=== PATIENT | male | born 1965 | race African-American/Black ===

== ENCOUNTER 2016-06-08 13:10 | Inpatient (IN) | payer OTHER ==
[2016-06-08 13:21] VITALS: BMI 23.2
--- NOTE | 2016-06-08 16:28 | HP ---
CIWA Score - CIWA Score Nausea/Vomitin Muscle Tremors: 3 Anxiety: 3 Agitation: 3 Paroxysmal Sweats: 2 Orientation: 0-Oriented Tacttile Disturbances: 2-Mild Itch/Numbness/Burn Auditory Disturbances: 2-Mild Harshness/Frighten Visual Disturbances: 2-Mild Sensitivity Headache: 2-Mild CIWA-Ar Total Score: 22 Admission ROS BHS - HPI Chief Complaint: i need help to stop drinking alcohol and cocaine Allergies/Adverse Reactions: Allergies Allergy/AdvReac Type Severity Reaction Status Date / Time No Known Allergies Allergy Verified 06/08/16 15:57 History of Present Illness: this 50 years old male with alcohol and cocaine dependence,withdrawal symptom, last detox 2013 [facility] syncope alcohol bipolar disorder ptsd longest period of sobriety 6 years Exam Limitations: No Limitations - Ebola screening Have you traveled outside of the country in the last 21 days: No Have you had contact with anyone from an Ebola affected area: No Have you been sick,other than usual withdrawal symptoms: No Do you have a fever: No - Review of Systems Constitutional: Diaphoresis, Loss of Appetite, Malaise, Night Sweats, Changes in sleep EENT: reports: Nose Congestion Respiratory: reports: No Symptoms reported Cardiac: reports: Palpitations GI: reports: Diarrhea, Nausea, Vomiting, Abdominal cramping : reports: No Symptoms Reported Musculoskeletal: reports: Back Pain, Muscle Pain Integumentary: reports: Dryness Neuro: reports: Headache, Tremors Endocrine: reports: No Symptoms Reported Hematology: reports: No Symptoms Reported Psychiatric: reports: other (bipolar disorder,ptsd) Patient History - Patient Medical History Hx Anemia: No Hx Asthma: No Hx Chronic Obstructive Pulmonary Disease (COPD): No Hx Cancer: No Hx Cardiac Disorders: No Hx Congestive Heart Failure: No Hx Hypertension: No Hx Hypercholesterolemia: No Hx Pacemaker: No HX Cerebrovascular Accident: No Hx Seizures: No Hx Dementia: No Hx Diabetes: No Hx Gastrointestinal Disorders: No Hx Liver Disease: Yes (unknown to pt, pos. for hep B antibodies) Hx Genitourinary Disorders: No Hx Sexually Transmitted Disorders: No Hx Renal Disease (ESRD): No Hx Thyroid Disease: No Hx Human Immunodeficiency Virus (HIV): No (tested last month . [facility]) Hx Hepatitis C: No Hx Depression: Yes Hx Suicide Attempt: No Hx Bipolar Disorder: Yes (rispedal ) Hx Schizophrenia: No Other Medical History: no suicidal,no homicidal - Patient Surgical History Past Surgical History: Yes Hx Neurologic Surgery: No Hx Cataract Extraction: No Hx Cardiac Surgery: No Hx Lung Surgery: No Hx Breast Surgery: No Hx Breast Biopsy: No Hx Abdominal Surgery: No Hx Appendectomy: No Hx Cholecystectomy: No Hx Genitourinary Surgery: No Hx Section: No Hx Orthopedic Surgery: Yes (L KNEE SX IN 2002) Anesthesia Reaction: No - PPD History Previous Implant?: Yes Documented Results: Negative w/o proof PPD to be Administered?: Yes - Smoking Cessation Smoking history: Current every day smoker Have you smoked in the past 12 months: Yes Aproximately how many cigarettes per day: 10 Hx Chewing Tobacco Use: No Initiated information on smoking cessation: Yes 'Breaking Loose' booklet given: 06/08/16 - Substance & Tx. History Hx Alcohol Use: Yes Hx Substance Use: Yes Substance Use Type: Alcohol, Cocaine Hx Substance Use Treatment: Yes (2013 [facility]) - Substances Abused Alcohol Route: Oral Frequency: Daily Amount used: 1 pint vodka 3 beers Age of first use: 20 Date of Last Use: 06/08/16 Cocaine Route: Inhalation Frequency: 3-6 times per week Amount used: 3gm Age of first use: 20 Date of Last Use: 06/06/16 Family Disease History - Family Disease History Family History: Denies Family Disease History: Diabetes: Mother Admission Physical Exam BHS - Vital Signs Vital Signs: Vital Signs - 24 hr 06/08/16 13:14 Temperature 96.6 F L Pulse Rate 81 Respiratory 16 Rate Blood Pressure 123/75 - Physical General Appearance: Yes: Moderate Distress, Tremorous, Irritable, Sweating, Anxious HEENTM: Yes: Normal ENT Inspection, Normocephalic, Pharynx Normal, Nasal Congestion Respiratory: Yes: Lungs Clear, Normal Breath Sounds, No Respiratory Distress Neck: Yes: Within Normal Limits, Supple Breast: Yes: Within Normal Limits Cardiology: Yes: Within Normal Limits, Regular Rhythm, Regular Rate, S1, S2 Abdominal: Yes: Within Normal Limits, Normal Bowel Sounds, Non Tender, Flat, Soft Genitourinary: Yes: Within Normal Limits Back: Yes: Muscle Spasm Extremities: Yes: Tremors 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 (5) PTSD (post-traumatic stress disorder) Status: Chronic Comment: As per self-report. (6) Nicotine dependence Status: Acute Cleared for Admission [facility] - Detox or Rehab [facility] Level of Care: Medically Managed Detox Regimen/Protocol: Librium [facility] Breath Alcohol Content Breath Alcohol Content: 0.040 Urine Drug Screen - Results Drug Screen Negative: No Urine Drug Screen Results: NATO-Cocaine
[2016-06-08] MEDS ORDERED: MAGNESIUM CITRATE 300 ML BOTTLE PO PRN (16:39)
[2016-06-08] MEDS ORDERED: NICOTINE POLACRILEX 2 MG GUM BC PRN (16:39)
[2016-06-08] MEDS ORDERED: chlordiazePOXIDE HCL 25 MG CAPSULE PO ONE (16:39)
[2016-06-08] MEDS ORDERED: guaiFENesin/D-METHORPHAN HB 10 ML UNIT-DOSE CUPS PO PRN (16:39)
[2016-06-08] MEDS ORDERED: chlordiazePOXIDE HCL 25 MG CAPSULE PO PRN (16:39)
[2016-06-08] MEDS ORDERED: ACETAMINOPHEN 325 MG TABLET (FP) PO PRN (16:39)
[2016-06-08] MEDS ORDERED: MENTHOL/PHENOL 1 EACH UD MM PRN (16:39)
[2016-06-08] MEDS ORDERED: diphenhydrAMINE HCL 50 MG CAPSULE PO PRN (16:39)
[2016-06-08] MEDS ORDERED: MAGNESIUM HYDROX 2400MG/30ML ORAL SUSPENSION 30 ML CUP PO PRN (16:39)
[2016-06-08] MEDS ORDERED: hydrOXYzine PAMOATE 50 MG CAPSULE (FP) PO PRN (16:39)
[2016-06-08] MEDS ORDERED: IBUPROFEN 400 MG TABLET (FP) PO PRN (16:39)
[2016-06-08] MEDS ORDERED: MAG HYDROX/AL HYDROX/SIMETH 30 ML UNIT-DOSE CUP PO PRN (16:39)
[2016-06-08] MEDS ORDERED: LOPERAMIDE HCL 2 MG CAPSULE PO PRN (16:39)
[2016-06-08] MEDS ORDERED: P-EPHED 60MG/TRIPROLIDI 2.5MG TABLET PO PRN (16:39)
[2016-06-08] MEDS: chlordiazePOXIDE HCL 25 MG CAPSULE PO SCH ×2 (18:04→22:46)
[2016-06-08] MEDS: NICOTINE 21 MG/24 HOURS TOPICAL PATCH TD SCH (18:09)
[2016-06-08] MEDS: THIAMINE HCL 100 MG TABLET (FP) PO SCH (22:47)
[2016-06-09] MEDS: chlordiazePOXIDE HCL 25 MG CAPSULE PO SCH ×5 (05:49→22:16)
[2016-06-09] MEDS: NICOTINE 21 MG/24 HOURS TOPICAL PATCH TD SCH (10:24)
[2016-06-09] MEDS: PRENATAL VITAMINS W/ FOLIC ACID TABLET (FP) PO SCH (10:24)
[2016-06-09 10:42] LABS: MCH 31.5 pg (25.7-33.7); MCHC 33.7 g/dl (32.0-35.9); MEAN CELL VOLUME 93.6 fl (80-96); MEAN PLT VOLUME 8.1 fl (7.5-11.1); PLATELET COUNT 236 K/MM3 (134-434); RDW 13.2 % (11.9-15.9); WHITE BLOOD COUNT 3.9 K/mm3 (4.0-10.0)
[2016-06-09 10:54] LABS: ALBUMIN 3.4 g/dl (3.4-5.0); ANION GAP 6 (8-16); CALCIUM 8.5 mg/dL (8.5-10.1); CO2 30 mmol/L (21-32); GLUCOSE,RANDOM 85 mg/dL (74-106); SGOT/AST 22 U/L (15-37); SGPT/ALT 26 U/L (12-78)
[2016-06-09 10:56] LABS: ALK PHOS 58 U/L (45-117); BILIRUBIN,TOTAL 0.4 mg/dL (0.2-1.0); CREATININE 0.9 mg/dL (0.7-1.3); TOT PROT 6.7 g/dl (6.4-8.2)
--- NOTE | 2016-06-09 11:26 | EKG ---
Test Reason : Blood Pressure : / mmHG Vent. Rate : 070 BPM Atrial Rate : 076 BPM P-R Int : 136 ms QRS Dur : 078 ms QT Int : 346 ms P-R-T Axes : 075 061 030 degrees QTc Int : 373 ms NORMAL SINUS RHYTHM NORMAL ECG NO PREVIOUS ECGS AVAILABLE Confirmed by RAINA VIVAR MD ([id number]) on 06/09/2016 11:26:49 AM Referred By: Confirmed By:RAINA VIVAR MD
--- NOTE | 2016-06-09 12:55 | CONSULT ---
[facility] Psychiatric Consult - Data Date of interview: 06/09/16 Admission source: [facility] Identifying data: First admission to [facility] for this 50 y/o AA male seeking detox treatment on for alcohol and cocaine dependence.Patient is single, a father of one,homeless,unemployed and supported on welfare. Substance Abuse History: - Smoking Cessation. Smoking history: Current every day smoker. Have you smoked in the past 12 months: Yes. Aproximately how many cigarettes per day: 10. Hx Chewing Tobacco Use: No. Initiated information on smoking cessation: Yes. 'Breaking Loose' booklet given: 06/08/16. - Substance & Tx. History. Hx Alcohol Use: Yes. Hx Substance Use: Yes. Substance Use Type : Alcohol, Cocaine. Hx Substance Use Treatment: Yes (2013 [facility]). - Substances Abused. Alcohol. Route: Oral. Frequency: Daily. Amount used: 1 pint vodka 3 beers. Age of first use: 20. Date of Last Use: 06/08/16. Cocaine. Route: Inhalation. Frequency: 3-6 times per week. Amount used: 3gm. Age of first use: 20. Date of Last Use: 06/06/16. Confirmed by patient in this interview. Medical History: Suspicion of liver disease and a history of orthosurgery (left knee) in 2002. Psychiatric History: Patient admits to a history of five psychiatric hospitalizations.He is known to [facility] and [facility].Diagnosed with MDD.Mr Conley reports that he used to be on seroquel and celexa.Lost to follow up for months.Patient got just released from long term (served three years) on 05/12/16.No history of suicide attempts. Physical/Sexual Abuse/Trauma History: Patient denies history of sexual abuse.He is currently on parole until 2019. Additional Comment: Urine Drug Screen Results: NATO-Cocaine.Noted. Mental Status Exam - Mental Status Exam Alert and Oriented to: Time, Place, Person Cognitive Function: Good Patient Appearance: Well Groomed Mood: Anxious, Apprehensive Affect: Mood Congruent Patient Behavior: Appropriate, Cooperative Speech Pattern: Clear, Appropriate Voice Loudness: Normal Thought Process: Goal Oriented Thought Disorder: Not Present Hallucinations: Denies Suicidal Ideation: Denies Homicidal Ideation: Denies Insight/Judgement: Fair Sleep: Fair Appetite: Good Muscle strength/Tone: Normal Gait/Station: Normal Psychiatric Findings - Problem List ([place] 1, 2,3) (1) Alcohol dependence with uncomplicated withdrawal Current Visit: Yes Status: Acute (2) Nicotine dependence Current Visit: Yes Status: Acute (3) Cocaine dependence Current Visit: Yes Status: Active (4) Bipolar disorder Current Visit: Yes Status: Chronic Comment: As per self-report. (5) PTSD (post-traumatic stress disorder) Current Visit: Yes Status: Chronic Comment: As per self-report. - Initial Treatment Plan Initial Treatment Plan: Psychoeducation.Detoxification.Medications : celexa 10 mg po daily + seroquel 100 mg po hs.Side effects/benefits discussed with the patient.He agrees with this plan.Observation.
--- NOTE | 2016-06-09 13:08 | PN ---
[facility] CIWA - CIWA Score Nausea/Vomitin-No Nausea/No Vomiting Muscle Tremors: 3 Anxiety: 4-Mod. Anxious/Guarded Agitation: 4-Moderately Restless Paroxysmal Sweats: 3 Orientation: 0-Oriented Tacttile Disturbances: 0-None Auditory Disturbances: 0-None Visual Disturbances: 0-None Headache: 0-None Present CIWA-Ar Total Score: 14 BHS Progress Note (SOAP) Subjective: Anxiety,tremors,sweating,interrupted sleep,restless Objective: 06/09/16 13:08 Vital Signs - 8 hr 06/09/16 06/09/16 06:44 09:28 Temperature 98.0 F 96.9 F L Pulse Rate 58 L 63 Respiratory 18 18 Rate Blood Pressure 128/75 113/68 Laboratory Last Values WBC 3.9 K/mm3 (4.0-10.0) L 06/09/16 07:00 RBC 4.08 M/mm3 (4.00-5.60) 06/09/16 07:00 Hgb 12.8 GM/dL (11.7-16.9) D 06/09/16 07:00 Hct 38.2 % (35.4-49) D 06/09/16 07:00 MCV 93.6 fl (80-96) 06/09/16 07:00 MCHC 33.7 g/dl (32.0-35.9) 06/09/16 07:00 RDW 13.2 % (11.9-15.9) 06/09/16 07:00 Plt Count 236 K/MM3 (134-434) 06/09/16 07:00 MPV 8.1 fl (7.5-11.1) 06/09/16 07:00 Sodium 141 mmol/L (136-145) 06/09/16 07:00 Potassium 4.2 mmol/L (3.5-5.1) 06/09/16 07:00 Chloride 105 mmol/L (98-107) 06/09/16 07:00 Carbon Dioxide 30 mmol/L (21-32) 06/09/16 07:00 Anion Gap 6 (8-16) L 06/09/16 07:00 BUN 12 mg/dL (7-18) 06/09/16 07:00 Creatinine 0.9 mg/dL (0.7-1.3) 06/09/16 07:00 Creat Clearance w eGFR > 60 (>60) 06/09/16 07:00 Random Glucose 85 mg/dL (74-106) 06/09/16 07:00 Calcium 8.5 mg/dL (8.5-10.1) 06/09/16 07:00 Total Bilirubin 0.4 mg/dL (0.2-1.0) D 06/09/16 07:00 AST 22 U/L (15-37) 06/09/16 07:00 ALT 26 U/L (12-78) D 06/09/16 07:00 Alkaline Phosphatase 58 U/L (45-117) D 06/09/16 07:00 Total Protein 6.7 g/dl (6.4-8.2) 06/09/16 07:00 Albumin 3.4 g/dl (3.4-5.0) 06/09/16 07:00 RPR Titer Nonreactive (NONREACTIVE) 06/09/16 07:00 Labs noted Assessment: 06/09/16 13:10 Withdrawal Sx. Plan: Continue detox
[2016-06-09] MEDS ORDERED: QUEtiapine FUMARATE 100 MG TABLET (FP) PO SCH (22:00)
[2016-06-09] MEDS: THIAMINE HCL 100 MG TABLET (FP) PO SCH (22:15)
[2016-06-10] MEDS: chlordiazePOXIDE HCL 25 MG CAPSULE PO SCH ×2 (05:43→11:17)
[2016-06-10 09:50] VITALS: BP 131/78; PULSE 66; TEMP 98.5
[2016-06-10] MEDS ORDERED: CITALOPRAM HYDROBROMIDE 10 MG TABLET (FP) PO SCH (10:00)
[2016-06-10] MEDS: NICOTINE 21 MG/24 HOURS TOPICAL PATCH TD SCH (10:59)
[2016-06-10] MEDS: PRENATAL VITAMINS W/ FOLIC ACID TABLET (FP) PO SCH (10:59)
--- NOTE | 2016-06-10 11:01 | PN ---
S CIWA - CIWA Score Nausea/Vomitin-No Nausea/No Vomiting Muscle Tremors: 4-Moderate,w/Arms Extend Anxiety: 3 Agitation: 3 Paroxysmal Sweats: 3 Orientation: 0-Oriented Tacttile Disturbances: 0-None Auditory Disturbances: 0-None Visual Disturbances: 0-None Headache: 0-None Present CIWA-Ar Total Score: 13 BHS Progress Note (SOAP) Subjective: Sweating,anxiety,tremors,interrupted sleep,restless Objective: 06/10/16 11:00 Vital Signs - 8 hr 06/10/16 06/10/16 06/10/16 03:28 05:56 09:49 Temperature 96.1 F L 98.5 F Pulse Rate 65 66 Respiratory 18 16 18 Rate Blood Pressure 112/60 131/78 Laboratory Tests 06/08/16 06/09/16 06/09/16 07:00 07:00 07:00 WBC 3.9 L RBC 4.08 Hgb 12.8 D Hct 38.2 D MCV 93.6 MCHC 33.7 RDW 13.2 Plt Count 236 MPV 8.1 Sodium 141 Potassium 4.2 Chloride 105 Carbon Dioxide 30 Anion Gap 6 L BUN 12 Creatinine 0.9 Creat Clearance w eGFR > 60 Random Glucose 85 Calcium 8.5 Total Bilirubin 0.4 D AST 22 ALT 26 D Alkaline Phosphatase 58 D Total Protein 6.7 Albumin 3.4 RPR Titer Hepatitis C Antibody 0.1 06/09/16 07:00 WBC RBC Hgb Hct MCV MCHC RDW Plt Count MPV Sodium Potassium Chloride Carbon Dioxide Anion Gap BUN Creatinine Creat Clearance w eGFR Random Glucose Calcium Total Bilirubin AST ALT Alkaline Phosphatase Total Protein Albumin RPR Titer Nonreactive Hepatitis C Antibody labs noted Assessment: 06/10/16 11:00 withdrawal sx. Plan: continue detox
--- NOTE | 2016-06-10 12:57 | DS ---
[facility] Detox Discharge Summary Admission Date: 06/08/16 Discharge Date: 06/10/16 - History Present History: Alcohol Dependence Additional Comments: PT DECLINEDE TO CONTINUE WITH DETOX STATING PERSONAL REASONS. Pertinent Past History: PTSD/BIPOLAR DISORDER HX S/P LEFT KNEE SX - Physical Exam Results Vital Signs: Vital Signs Temperature 98.5 F 06/10/16 09:49 Pulse Rate 66 06/10/16 09:49 Respiratory Rate 18 06/10/16 09:49 Blood Pressure 131/78 06/10/16 09:49 O2 Sat by Pulse Oximetry (%) Pertinent Admission Physical Exam Findings: WITHDRAWAL SX - Treatment Hospital Course: Discharged Condition Good - Medication Discharge Medications: Ambulatory Orders Citalopram Hydrobromide [Celexa -] 10 mg PO DAILY 06/08/16 Quetiapine Fumarate [Seroquel -] 25 mg PO HS 06/08/16 Citalopram Hydrobromide [Celexa -] 10 mg PO DAILY #30 tablet 06/09/16 Quetiapine Fumarate [Seroquel] 100 mg PO HS #30 tablet 06/09/16 - Diagnosis (1) Alcohol dependence with uncomplicated withdrawal Status: Acute (2) Nicotine dependence Status: Acute Qualifiers: Nicotine product type: cigarettes Substance use status: in withdrawal Qualified Code(s): F17.213 - Nicotine dependence, cigarettes, with withdrawal (3) Bipolar disorder Status: Chronic (4) PTSD (post-traumatic stress disorder) Status: Chronic (5) Cocaine dependence, uncomplicated Status: Acute - AMA Did Patient Leave Against Medical Advice: Yes
[2016-06-10] MEDS ORDERED: chlordiazePOXIDE 5 MG CAPSULE PO SCH (17:00)
[2016-06-11] MEDS ORDERED: chlordiazePOXIDE HCL 10 MG CAPSULE PO SCH (17:00)
== END 2016-06-10 13:30 | disposition left against medical advice (07) | DRG 770 ==
LOC: YASAS 13:10 → Y3N 15:59
PROVIDERS: ADMIT Internal Medicine; ATTEND Internal Medicine
PROC: HZ2ZZZZ Detoxification Services for Substance Abuse Treatment (ICD-10-PCS; principal; 2016-06-10)
DX: F10.230 Alcohol dependence with withdrawal, uncomplicated (principal); F14.20 Cocaine dependence, uncomplicated; F17.210 Nicotine dependence, cigarettes, uncomplicated; F31.9 Bipolar disorder, unspecified; F43.10 Post-traumatic stress disorder, unspecified; R55 Syncope and collapse
CPT/HCPCS: 36415; 80053; 85027; 86593; 93005; 93010

== ENCOUNTER 2017-01-06 10:49 | Inpatient (IN) | payer OTHER ==
[2017-01-06 11:12] VITALS: BMI 22.1
--- NOTE | 2017-01-06 13:17 | HP ---
Admission ROS [facility] Chief Complaint: PATIENT STATES " I AM HERE FOR REHAB." Allergies/Adverse Reactions: Allergies Allergy/AdvReac Type Severity Reaction Status Date / Time No Known Allergies Allergy Verified 01/06/17 11:39 History of Present Illness: PATIENT IS A 51 YEARS OLD MALE WITH ALCOHOL DEPENDENCY AND COCAINE DEPENDENCY. COMPLETED DETOX AT [facility] ON 01/04/20. Exam Limitations: No Limitations - Ebola screening Have you traveled outside of the country in the last 21 days: No Have you had contact with anyone from an Ebola affected area: No Have you been sick,other than usual withdrawal symptoms: No Do you have a fever: No - Review of Systems Constitutional: No Symptoms Reported EENT: reports: Dental Problems (UPPER DENTURES) Respiratory: reports: No Symptoms reported GI: reports: No Symptoms Reported : reports: No Symptoms Reported Musculoskeletal: reports: Back Pain (LOWER BACK PAIN), Joint Stiffness Integumentary: reports: No Symptoms Reported Neuro: reports: Paresthesia, Tingling (HX OF NECK INJURY;LEFT HAND) Endocrine: reports: No Symptoms Reported Hematology: reports: No Symptoms Reported Psychiatric: reports: Mood/Affect Appropiate (ON ZYPREXA MED.), Orientated x3, Anxious, Depressed Other Systems: Reviewed and Negative Patient History - Patient Medical History Hx Anemia: No Hx Asthma: No Hx Chronic Obstructive Pulmonary Disease (COPD): No Hx Cancer: No Hx Cardiac Disorders: No Hx Congestive Heart Failure: No Hx Hypertension: No Hx Hypercholesterolemia: No Hx Pacemaker: No HX Cerebrovascular Accident: No Hx Seizures: No Hx Dementia: No Hx Diabetes: No Hx Gastrointestinal Disorders: No Hx Liver Disease: No (PT DENIES) Hx Genitourinary Disorders: No Hx Sexually Transmitted Disorders: No Hx Renal Disease (ESRD): No Hx Thyroid Disease: No Hx Human Immunodeficiency Virus (HIV): No (LAST TESTED 02/2016) Hx Hepatitis C: No (LAST TESTED 02/2016) Hx Depression: Yes (ON MEDS) Hx Suicide Attempt: No (PATIENT DENIES CURRENT SUICIDAL AND HOMICIDAL IDEATION) Hx Bipolar Disorder: Yes (ON MEDS) Hx Schizophrenia: No Other Medical History: PTSD, MOOD DISORDER - Patient Surgical History Past Surgical History: Yes Hx Neurologic Surgery: No Hx Cataract Extraction: No Hx Cardiac Surgery: No Hx Lung Surgery: No Hx Breast Surgery: No Hx Breast Biopsy: No Hx Abdominal Surgery: No Hx Appendectomy: No Hx Cholecystectomy: No Hx Genitourinary Surgery: No Hx Section: No Hx Orthopedic Surgery: Yes (L KNEE SX IN 2002) Anesthesia Reaction: No - PPD History Previous Implant?: Yes Documented Results: Negative w/proof Implanted On Prior [facility] Admission?: Yes Date: 06/10/16 Results: 0mm PPD to be Administered?: No - Reproductive History Patient is a Female of Child Bearing Age (11 -55 yrs old): No (MALE) - Smoking Cessation Smoking history: Current every day smoker Have you smoked in the past 12 months: Yes Aproximately how many cigarettes per day: 12 Cigars Per Day: 0 Hx Chewing Tobacco Use: No Initiated information on smoking cessation: Yes 'Breaking Loose' booklet given: 01/06/17 (GIVEN AT ADMISSION) - Substance & Tx. History Hx Alcohol Use: Yes Hx Substance Use: Yes Substance Use Type: Alcohol, Cocaine Hx Substance Use Treatment: Yes (COMPLETED DETOX AT [facility] ON 01/03/2017) - Substances Abused Alcohol Route: Oral Frequency: Daily Amount used: 3 qts of beer Age of first use: 20 Date of Last Use: 12/30/16 Cocaine Route: Inhalation Frequency: Daily Amount used: 1-2 grams Age of first use: 20 Date of Last Use: 12/30/16 Family Disease History - Family Disease History Family Disease History: Diabetes: Mother (ASTHMA), Respiratory: Mother, Other: Father () Admission Physical Exam BHS - Vital Signs Vital Signs: Vital Signs - 24 hr 01/06/17 11:07 Temperature 96.9 F L Pulse Rate 76 Respiratory 20 Rate Blood Pressure 133/77 BHS Breath Alcohol Content Breath Alcohol Content: 0 Urine Drug Screen - Results Drug Screen Negative: No Urine Drug Screen Results: NATO-Cocaine, BZO-Benzodiazepines
--- NOTE | 2017-01-06 14:41 | HP ---
[facility] Re[facility] Assess/Revision - Admission History [facility] Date of Admission to Rehab: 01/06/2017 - Vital signs Vital Signs: Vital Signs Period Temp Pulse Resp BP Sys/Donis Pulse Ox Last 24 Hr 96.9 F 76 20 133/77 - Findings Detox History & Physical reviewed: Yes Concur with findings: Yes Comments/Additional Findings: patient had microscopic hematuria last visit will repeat u/a Inpatient Rehab Admission - Initial Determination Are CD services needed?: Yes Free of communicable disease: Yes Not in need of hospitalization: Yes - Rehab Admission Criteria Comorbidities: Yes Patient is meeting Inpatient Rehab admission criteria:: Yes
[2017-01-06] MEDS ORDERED: MAGNESIUM CITRATE 300 ML BOTTLE PO PRN (14:47)
[2017-01-06] MEDS ORDERED: P-EPHED 60MG/TRIPROLIDI 2.5MG TABLET PO PRN (14:47)
[2017-01-06] MEDS ORDERED: guaiFENesin/D-METHORPHAN HB 10 ML UNIT-DOSE CUPS PO PRN (14:47)
[2017-01-06] MEDS ORDERED: ACETAMINOPHEN 325 MG TABLET (FP) PO PRN (14:47)
[2017-01-06] MEDS ORDERED: LOPERAMIDE HCL 2 MG CAPSULE PO PRN (14:47)
[2017-01-06] MEDS ORDERED: MENTHOL/PHENOL 1 EACH UD MM PRN (14:47)
[2017-01-06] MEDS ORDERED: MAGNESIUM HYDROX 2400MG/30ML ORAL SUSPENSION 30 ML CUP PO PRN (14:47)
[2017-01-06] MEDS ORDERED: MAG HYDROX/AL HYDROX/SIMETH 30 ML UNIT-DOSE CUP PO PRN (14:47)
[2017-01-06] MEDS ORDERED: IBUPROFEN 400 MG TABLET (FP) PO PRN (14:47)
[2017-01-06] MEDS: THIAMINE HCL 100 MG TABLET (FP) PO SCH (21:52)
[2017-01-06 23:13] LABS: URINE APPEARANCE CLEAR; URINE BILIRUBIN NEGATIVE (NEGATIVE); URINE BLOOD 1+ (NEGATIVE); URINE COLOR LTYELLOW; URINE GLUCOSE (UA) NEGATIVE (NEGATIVE); URINE KETONE NEGATIVE (NEGATIVE); URINE LEUK ESTERASE NEGATIVE (NEGATIVE); URINE NITRITE NEGATIVE (NEGATIVE); URINE PROTEIN NEGATIVE (NEGATIVE); URINE UROBILINOGEN NEGATIVE mg/dL (0.2-1.0)
[2017-01-06 23:35] LABS: URINE RBC 1 /hpf (0-3); URINE WBC 1 /hpf (3-5)
--- NOTE | 2017-01-07 06:30 | HP ---
Psychiatrist Admission - Data Date of interview: 01/07/17 Admission source: [facility] Identifying data: This is the first [facility] admission for this 51 years old single Black male, father of 15 years old daughter, unemployed on public assistance, homeless Medical History: Significant for history of orthosurgery on left knee in 2002. Smokes 12 cigarettes daily Psychiatric History: Patient reports that he has been seeing psychiatrist since the age of 9. Reports history Bipolar depression with multiple psychiatric admissions including to [facility]. Most recent one was in 2015 to [facility] for depression. Reports non-compliance with OPD care. He was in intermediate for 3 years and released on 05/12/16 and was again incarcerated from August 2016 to Dec 11, 2016. He received psychiatric reatment while there and he was released on Zyprexa 5 mg po daily and Benadryl 50 mg po HS. He saw Dr Mcfadden on 01/01/17 while in detox and was prescribed Zyprexa 5 mg/day. At present reports feeling depressed and sleeping poorly Physical/Sexual Abuse/Trauma History: Patient denies history of sexual abuse. He is currently on parole until 2019. Additional Comment: Reports history of multiple arrests including 7 felony convictions. Reports being on parole till May 2019 Vital Signs: Vital Signs - 24 hr 01/06/17 01/07/17 01/07/17 11:07 00:32 04:27 Temperature 96.9 F L Pulse Rate 76 Respiratory 20 18 18 Rate Blood Pressure 133/77 Allergies/Adverse Reactions: Allergies Allergy/AdvReac Type Severity Reaction Status Date / Time No Known Allergies Allergy Verified 01/06/17 11:39 Date of last physical exam: 12/31/16 Concur with the findings of this exam: Yes - Substance Abuse/Tx History Hx Alcohol Use: Yes Hx Substance Use: Yes Substance Use Type: Alcohol (Started drinking alcohol at age 20, consumes 2 pints of liquor and a 6pk of beer 3-6 times weekly. Last drank on 12/31/16), Cocaine (Started using cocaine at age 20, consumes $50 worth daily. Last used on 12/29/16) Hx Substance Use Treatment: Yes (3 previous inpt detox @ [facility]) Mental Status Exam - Mental Status Exam Alert and Oriented to: Time, Place, Person Cognitive Function: Fair Patient Appearance: Well Groomed Mood: Depressed, Irritable Affect: Appropriate Patient Behavior: Cooperative Speech Pattern: Clear Voice Loudness: Normal Thought Process: Intact, Goal Oriented Thought Disorder: Not Present Hallucinations: Denies Suicidal Ideation: Denies Homicidal Ideation: Denies Insight/Judgement: Fair Sleep: Poorly Muscle strength/Tone: Normal Gait/Station: Normal Psychiatric Findings - Problem List ([place] 1, 2,3) (1) Alcohol dependence Current Visit: Yes Status: Acute (2) Cocaine dependence Current Visit: Yes Status: Acute (3) Nicotine dependence Current Visit: No Status: Chronic Qualifiers: Nicotine product type: cigarettes Substance use status: in withdrawal Qualified Code(s): F17.213 - Nicotine dependence, cigarettes, with withdrawal; F17.213 - Nicotine dependence, cigarettes, with withdrawal (4) Bipolar disorder Current Visit: No Status: Chronic Comment: As per self-report. - Initial Treatment Plan Initial Treatment Plan: 1) Continue Zyprexa 5 mg po HS. 2) Monitor progress
[2017-01-07] MEDS: PRENATAL VITAMINS W/ FOLIC ACID TABLET (FP) PO SCH (10:58)
--- NOTE | 2017-01-07 11:51 | EKG ---
Test Reason : Blood Pressure : / mmHG Vent. Rate : 084 BPM Atrial Rate : 084 BPM P-R Int : 136 ms QRS Dur : 092 ms QT Int : 350 ms P-R-T Axes : 065 048 027 degrees QTc Int : 413 ms NORMAL SINUS RHYTHM NORMAL ECG WHEN COMPARED WITH ECG OF 31-DEC-2016 22:26, NO SIGNIFICANT CHANGE WAS FOUND Confirmed by FORTUNATO FLORES MD ([id number]) on 01/07/2017 11:51:25 AM Referred By: Trixie Hinton Confirmed By:FORTUNATO FLORES MD
[2017-01-07] MEDS: THIAMINE HCL 100 MG TABLET (FP) PO SCH (21:16)
[2017-01-07] MEDS: OLANZapine 5 MG TABLET PO SCH (21:16)
[2017-01-08] MEDS: PRENATAL VITAMINS W/ FOLIC ACID TABLET (FP) PO SCH (09:33)
[2017-01-08] MEDS: OLANZapine 5 MG TABLET PO SCH (21:52)
[2017-01-08] MEDS: THIAMINE HCL 100 MG TABLET (FP) PO SCH (21:52)
[2017-01-08] MEDS: diphenhydrAMINE HCL 50 MG CAPSULE PO PRN (21:53)
[2017-01-09] MEDS: PRENATAL VITAMINS W/ FOLIC ACID TABLET (FP) PO SCH (10:16)
[2017-01-09] MEDS: OLANZapine 5 MG TABLET PO SCH (22:33)
[2017-01-09] MEDS: THIAMINE HCL 100 MG TABLET (FP) PO SCH (22:33)
[2017-01-09] MEDS: diphenhydrAMINE HCL 50 MG CAPSULE PO PRN (22:33)
[2017-01-10] MEDS: PRENATAL VITAMINS W/ FOLIC ACID TABLET (FP) PO SCH (10:08)
[2017-01-10] MEDS: THIAMINE HCL 100 MG TABLET (FP) PO SCH (21:43)
[2017-01-10] MEDS: OLANZapine 5 MG TABLET PO SCH (21:43)
[2017-01-10] MEDS: diphenhydrAMINE HCL 50 MG CAPSULE PO PRN (21:44)
[2017-01-11] MEDS: PRENATAL VITAMINS W/ FOLIC ACID TABLET (FP) PO SCH (10:06)
[2017-01-11] MEDS: hydrOXYzine PAMOATE 50 MG CAPSULE (FP) PO PRN (15:29)
[2017-01-11] MEDS: OLANZapine 5 MG TABLET PO SCH (21:59)
[2017-01-11] MEDS: THIAMINE HCL 100 MG TABLET (FP) PO SCH (21:59)
[2017-01-12] MEDS: PRENATAL VITAMINS W/ FOLIC ACID TABLET (FP) PO SCH (10:43)
[2017-01-12] MEDS: OLANZapine 5 MG TABLET PO SCH (21:59)
[2017-01-12] MEDS: THIAMINE HCL 100 MG TABLET (FP) PO SCH (21:59)
[2017-01-13] MEDS: PRENATAL VITAMINS W/ FOLIC ACID TABLET (FP) PO SCH (09:53)
[2017-01-13] MEDS: hydrOXYzine PAMOATE 50 MG CAPSULE (FP) PO PRN (09:53)
[2017-01-13] MEDS: OLANZapine 5 MG TABLET PO SCH (22:39)
[2017-01-13] MEDS: THIAMINE HCL 100 MG TABLET (FP) PO SCH (22:39)
[2017-01-13] MEDS: diphenhydrAMINE HCL 50 MG CAPSULE PO PRN (22:40)
[2017-01-14] MEDS: PRENATAL VITAMINS W/ FOLIC ACID TABLET (FP) PO SCH (10:27)
[2017-01-14] MEDS: diphenhydrAMINE HCL 50 MG CAPSULE PO PRN (21:20)
[2017-01-14] MEDS: OLANZapine 5 MG TABLET PO SCH (21:20)
[2017-01-14] MEDS: THIAMINE HCL 100 MG TABLET (FP) PO SCH (21:20)
[2017-01-15] MEDS: PRENATAL VITAMINS W/ FOLIC ACID TABLET (FP) PO SCH (10:44)
[2017-01-15] MEDS: THIAMINE HCL 100 MG TABLET (FP) PO SCH (21:20)
[2017-01-15] MEDS: diphenhydrAMINE HCL 50 MG CAPSULE PO PRN (21:21)
[2017-01-15] MEDS: OLANZapine 5 MG TABLET PO SCH ×2 (21:21→21:23)
[2017-01-16] MEDS: PRENATAL VITAMINS W/ FOLIC ACID TABLET (FP) PO SCH (10:22)
[2017-01-16] MEDS: diphenhydrAMINE HCL 50 MG CAPSULE PO PRN (21:09)
[2017-01-16] MEDS: OLANZapine 5 MG TABLET PO SCH (21:09)
[2017-01-16] MEDS: THIAMINE HCL 100 MG TABLET (FP) PO SCH (21:09)
[2017-01-17] MEDS: PRENATAL VITAMINS W/ FOLIC ACID TABLET (FP) PO SCH (10:08)
[2017-01-17] MEDS: THIAMINE HCL 100 MG TABLET (FP) PO SCH (21:47)
[2017-01-17] MEDS: diphenhydrAMINE HCL 50 MG CAPSULE PO PRN (21:47)
[2017-01-17] MEDS: OLANZapine 5 MG TABLET PO SCH (21:48)
[2017-01-18] MEDS: PRENATAL VITAMINS W/ FOLIC ACID TABLET (FP) PO SCH (10:23)
[2017-01-18] MEDS: diphenhydrAMINE HCL 50 MG CAPSULE PO PRN (21:16)
[2017-01-18] MEDS: THIAMINE HCL 100 MG TABLET (FP) PO SCH (21:16)
[2017-01-18] MEDS: OLANZapine 5 MG TABLET PO SCH (21:16)
[2017-01-19] MEDS: PRENATAL VITAMINS W/ FOLIC ACID TABLET (FP) PO SCH (09:31)
[2017-01-19] MEDS: THIAMINE HCL 100 MG TABLET (FP) PO SCH (21:28)
[2017-01-19] MEDS: OLANZapine 5 MG TABLET PO SCH (21:28)
[2017-01-19] MEDS: diphenhydrAMINE HCL 50 MG CAPSULE PO PRN (21:28)
[2017-01-20 07:04] VITALS: BP 142/89; PULSE 60; TEMP 98.1
--- NOTE | 2017-01-20 09:04 | PN ---
Psychiatric Progress Note Vital Signs: Vital Signs Period Temp Pulse Resp BP Sys/Donis Pulse Ox Last 24 Hr 98.1 F 60 18-20 142/89 Date of Session: 01/20/17 Chief Complaint:: Discharge Note HPI: Patient addressing Alcohol and Cocaine Dependence comorbid with Nicotine Dependence and Bipolar Disorder Current Medications: Active Medications Generic Name Dose Route Start Last Admin Trade Name Freq PRN Reason Stop Dose Admin Acetaminophen 650 mg 01/06/17 14:47 Tylenol - PO Q4H PRN PAIN Al Hydroxide/Mg Hydroxide 30 ml 01/06/17 14:47 Mylanta Oral Suspension - PO Q6H PRN DYSPEPSIA Diphenhydramine HCl 50 mg 01/06/17 14:47 01/19/17 21:28 Benadryl - PO 50 mg HSMR1 PRN Administration INSOMNIA Eucalyptus/Menthol/Phenol/Sorbitol 1 each 01/06/17 14:47 Cepastat Lozenge - MM Q4H PRN SORE THROAT Guaifenesin 10 ml 01/06/17 14:47 Robitussin Dm - PO Q6H PRN COUGH Hydroxyzine Pamoate 50 mg 01/11/17 12:18 01/13/17 09:53 Vistaril - PO 50 mg Q4H PRN Administration ANXIETY Ibuprofen 400 mg 01/06/17 14:47 Motrin - PO Q6H PRN SEVERE PAIN Loperamide HCl 4 mg 01/06/17 14:47 Imodium - PO Q6H PRN DIARRHEA Magnesium Citrate 300 ml 01/06/17 14:47 Citroma - PO Q48H PRN CONSTIPATION Magnesium Hydroxide 30 ml 01/06/17 14:47 Milk Of Magnesia - PO DAILY PRN CONSTIPATION Olanzapine 5 mg 01/07/17 22:00 01/19/17 21:28 Zyprexa - PO 5 mg HS ИРИНА Administration Multivit/Folic Acid/Iron 1 tab 01/07/17 10:00 01/19/17 09:31 Vitamins (Sjr) - PO 1 tab DAILY ИРИНА Administration Pseudoephedrine/Triprolidine 1 combo 01/06/17 14:47 Actifed - PO TID PRN NASAL CONGESTION Thiamine HCl 100 mg 01/06/17 22:00 01/19/17 21:28 Vitamin B1 - PO 100 mg HS ИРИНА Administration Current Side Effect: No Lab tests ordered: Yes Lab tests reviewed: Yes Provider note:: Patient has completed this program today. He has met his treatment goals and will continue to address his issues in outpatient treatment at [facility] at [address] [place] [address]. Told aligner typewriter that from his participation in this program, he has learned the importance of compliance with treatment in order to maintain abstinence. He responded well to Zyprexa 5 mg po HS. Script for 30 days supply of that medication is electronically transmitted to [facility] at [address] [place] [address]. He is stable for discharge today. Total face to face time:: 35 Mental Status Exam - Mental Status Exam Alert and Oriented to: Time, Place, Person Cognitive Function: Fair Patient Appearance: Well Groomed Mood: Hopeful, Euthymic Affect: Appropriate Patient Behavior: Cooperative Speech Pattern: Clear, Artificially Ventilated Thought Process: Intact, Goal Oriented Thought Disorder: Not Present Hallucinations: Denies Suicidal Ideation: Denies Insight/Judgement: Fair Sleep: Well Appetite: Good Muscle strength/Tone: Normal, Severe Hypotonicity Psychiatric Treatment Plan - Problem List (1) Alcohol dependence Current Visit: Yes (2) Cocaine dependence Current Visit: Yes (3) Nicotine dependence Current Visit: No Qualifiers: Nicotine product type: cigarettes Substance use status: in withdrawal Qualified Code(s): F17.213 - Nicotine dependence, cigarettes, with withdrawal; F17.213 - Nicotine dependence, cigarettes, with withdrawal (4) Bipolar disorder Current Visit: No Comment: As per self-report. Initial treatment plan: Patient is discharged today and referred to [facility] for outpatient treatment
== END 2017-01-20 09:25 | disposition home or self-care (01) | DRG 772 ==
LOC: YASAS 10:49 → Y3W 15:03
PROVIDERS: ADMIT Psychiatry & Neurology Psychiatry; ATTEND Psychiatry & Neurology Psychiatry
PROC: HZ42ZZZ Group Counseling for Substance Abuse Treatment, Cognitive-Behavioral (ICD-10-PCS; principal; 2017-01-06)
DX: F10.20 Alcohol dependence, uncomplicated (principal); F14.20 Cocaine dependence, uncomplicated; F17.213 Nicotine dependence, cigarettes, with withdrawal; F31.9 Bipolar disorder, unspecified
CPT/HCPCS: 81003; 81015; 93005; 93010

== ENCOUNTER 2018-07-05 19:01 | Inpatient (IN) | payer OTHER ==
--- NOTE | 2018-07-05 20:42 | HP ---
CIWA Score Nausea/Vomitin-No Nausea/No Vomiting Muscle Tremors: 1-None Visible, but [place] Anxiety: 4-Mod. Anxious/Guarded Agitation: 4-Moderately Restless Paroxysmal Sweats: 3 Orientation: 1-Uncertain about Date Tacttile Disturbances: 0-None Auditory Disturbances: 0-None Visual Disturbances: 0-None Headache: 0-None Present CIWA-Ar Total Score: 13 - Admission Criteria OASAS Guidelines: Admission for Medically Managed Detox: Requires at least one of the followin. CIWA greater than 12 2. Seizures within the past 24 hours 3. Delirium tremens within the past 24 hours 4. Hallucinations within the past 24 hours 5. Acute intervention needed for co occurring medical disorder 6. Acute intervention needed for co occurring psychiatric disorder 7. Severe withdrawal that cannot be handled at a lower level of care (continued vomiting, continued diarrhea, abnormal vital signs) requiring intravenous medication and/or fluids 8. Patient presents the following: CIWA greater than 12 Admission Criteria Met: Admission criteria met Admission ROS S - [facility] Chief Complaint: C/O WORSENING WITHDRAWAL SX'S. SEEKING DETOX Allergies/Adverse Reactions: Allergies Allergy/AdvReac Type Severity Reaction Status Date / Time No Known Allergies Allergy Verified 01/06/17 11:39 History of Present Illness: 52 Y.O. MALE WITH HX/O ALCOHOLISM HERE FOR DETOX. CLIENT IS KNOWN TO THIS PROGRAM. LAST ADMITTED 2016. HE PRESENTS TODAY WITH C/O WORSENING WITHDRAWAL SX' S. CIWA 13. HE REPORTS USING OTHER ILLICIT SUBSTANCES, COCAINE, MARIJUANNA. DENIES ANY SIGNIFICANT PERIOD OF CLEAN TIME. DENIES PAST/PRESENT SI/HI/AVH. HOMELESS. ON PAROLE. PMHX- DENIES PSYCH- DENIES Exam Limitations: No Limitations - Ebola screening Have you traveled outside of the country in the last 21 days: No (N) Have you had contact with anyone from an Ebola affected area: No Have you been sick,other than usual withdrawal symptoms: No Do you have a fever: No - Review of Systems Constitutional: Loss of Appetite, Changes in sleep, Unintentional Wgt. Loss EENT: reports: No Symptoms Reported Respiratory: reports: No Symptoms reported Cardiac: reports: No Symptoms Reported GI: reports: Poor Appetite, Poor Fluid Intake : reports: No Symptoms Reported Musculoskeletal: reports: Neck Pain Integumentary: reports: Dryness, Other (DRIED ABRASIONS TO BLE) Neuro: reports: No Symptoms reported Endocrine: reports: No Symptoms Reported Hematology: reports: No Symptoms Reported Psychiatric: reports: Orientated x3, Agitated (IRRITABLE), Anxious Other Systems: Reviewed and Negative Patient History - Patient Medical History Hx Anemia: No Hx Asthma: No Hx Chronic Obstructive Pulmonary Disease (COPD): No Hx Cancer: No Hx Cardiac Disorders: No Hx Congestive Heart Failure: No Hx Hypertension: No Hx Hypercholesterolemia: No Hx Pacemaker: No HX Cerebrovascular Accident: No Hx Seizures: No Hx Dementia: No Hx Diabetes: No Hx Gastrointestinal Disorders: No Hx Liver Disease: Yes (unknown to pt, pos. for hep B antibodies) Hx Genitourinary Disorders: No Hx Sexually Transmitted Disorders: No Hx Renal Disease (ESRD): No Hx Thyroid Disease: No Hx Human Immunodeficiency Virus (HIV): No Hx Hepatitis C: No Hx Depression: Yes Hx Suicide Attempt: No Hx Bipolar Disorder: Yes (rispedal ) Hx Schizophrenia: No - Patient Surgical History Past Surgical History: Yes Hx Neurologic Surgery: No Hx Cataract Extraction: No Hx Cardiac Surgery: No Hx Lung Surgery: No Hx Breast Surgery: No Hx Breast Biopsy: No Hx Abdominal Surgery: No Hx Appendectomy: No Hx Cholecystectomy: No Hx Genitourinary Surgery: No Hx Section: No Hx Orthopedic Surgery: Yes (L KNEE SX IN 2002) Anesthesia Reaction: No - PPD History Previous Implant?: Yes Documented Results: Negative w/proof Implanted On Prior [facility] Admission?: Yes Date: 06/10/16 Results: 0mm PPD to be Administered?: Yes - Smoking Cessation Smoking history: Current every day smoker Have you smoked in the past 12 months: Yes Aproximately how many cigarettes per day: 12 Cigars Per Day: 0 Hx Chewing Tobacco Use: No Initiated information on smoking cessation: Yes 'Breaking Loose' booklet given: 07/05/18 - Substance & Tx. History Hx Alcohol Use: Yes Hx Substance Use: Yes Substance Use Type: Alcohol, Cocaine, Marijuana Hx Substance Use Treatment: Yes ([facility]) - Substances abused Alcohol Substance route: Oral Frequency: Daily Amount used: 5 PINTS VODKA Age of first use: 19 Date of last use: 07/05/18 Cocaine Substance route: Inhalation Frequency: Daily Amount used: 50 dollars Age of first use: 20 Date of last use: 07/04/18 Family Disease History - Family Disease History Family Disease History: Diabetes: Mother, Other: Father Admission Physical Exam [facility] - Vital Signs Vital Signs: Vital Signs - 24 hr 07/05/18 20:15 Temperature 98.8 F Pulse Rate 103 H Respiratory 16 Rate Blood Pressure 128/75 - Physical General Appearance: Yes: Disheveled, Irritable HEENTM: Yes: EOMI, SONIA, Pharynx Normal, Other (PARTIAL DENTURES) Respiratory: Yes: Chest Non-Tender, Lungs Clear, Normal Breath Sounds, No Respiratory Distress, No Accessory Muscle Use Neck: Yes: No masses,lesions,Nodules, Supple, Trachea in good position Breast: Yes: Breast Exam Deferred Cardiology: Yes: Regular Rhythm, S1, S2, Tachycardia Abdominal: Yes: Normal Bowel Sounds, Non Tender, Soft Genitourinary: Yes: Within Normal Limits (NO C/O) Back: Yes: Normal Inspection Musculoskeletal: Yes: full range of Motion, Gait Steady Extremities: Yes: Normal Capillary Refill, Normal Range of Motion, Non-Tender Neurological: Yes: Fully Oriented, Alert, Motor Strength 5/5, Depressed Affect Integumentary: Yes: Dry, Other (EXTREMELY DRY FLAKY SKIN/ ABRASIONS TO LEGS AND HANDS) Lymphatic: Yes: Within Normal Limits - Diagnostic (1) Cannabis abuse, uncomplicated Current Visit: Yes Status: Acute (2) Depressed affect Current Visit: Yes Status: Chronic (3) Homeless Current Visit: Yes Status: Chronic (4) Alcohol dependence with uncomplicated withdrawal Current Visit: Yes Status: Acute (5) Cocaine dependence, uncomplicated Current Visit: Yes Status: Acute (6) Nicotine dependence Current Visit: Yes Status: Chronic Qualifiers: Nicotine product type: cigarettes Substance use status: in withdrawal Qualified Code(s): F17.213 - Nicotine dependence, cigarettes, with withdrawal Cleared for Admission [facility] - Detox or Rehab [facility] Level of Care: Medically Managed Detox Regimen/Protocol: Librium Claeared for Rehab Admission: No Breathalyzer - Breathalyzer Breathalyzer: 0 Urine Drug Screen - Test Device Lot number: [id number] Expiration date: 03/05/20 - Control Is test valid?: Yes - Results Urine drug screen results: THC-Marijuana, NATO-Cocaine Inpatient Rehab Admission - Rehab Decision to Admit Inpatient rehab admission?: No
[2018-07-05] MEDS ORDERED: MENTHOL/PHENOL 1 EACH UD MM PRN (20:46)
[2018-07-05] MEDS ORDERED: METHOCARBAMOL 500 MG TABLET PO PRN (20:46)
[2018-07-05] MEDS ORDERED: ACETAMINOPHEN 325 MG TABLET (FP) PO PRN ×2 (20:46)
[2018-07-05] MEDS ORDERED: MAG HYDROX/AL HYDROX/SIMETH 30 ML UNIT-DOSE CUP PO PRN (20:46)
[2018-07-05] MEDS ORDERED: BISMUTH SUBSALICYLATE 524 MG/30 ML UD PO PRN (20:46)
[2018-07-05] MEDS ORDERED: P-EPHED 60MG/TRIPROLIDI 2.5MG TABLET PO PRN (20:46)
[2018-07-05] MEDS ORDERED: guaiFENesin 200 MG/10 ML 10 ML UNIT-DOSE CUPS PO PRN (20:46)
[2018-07-05] MEDS ORDERED: MAGNESIUM CITRATE 300 ML BOTTLE PO PRN (20:46)
[2018-07-05] MEDS ORDERED: MAGNESIUM HYDROX 2400MG/30ML ORAL SUSPENSION 30 ML CUP PO PRN (20:46)
[2018-07-05] MEDS ORDERED: chlordiazePOXIDE HCL 25 MG CAPSULE PO PRN (20:46)
[2018-07-05] MEDS ORDERED: ONDANSETRON *ODT* 4 MG TABLET SL PRN (20:46)
[2018-07-05] MEDS ORDERED: MELATONIN 5 MG TABLETS PO PRN (20:46)
[2018-07-05] MEDS ORDERED: IBUPROFEN 400 MG TABLET (FP) PO PRN (20:46)
[2018-07-05] MEDS ORDERED: DICYCLOMINE HCL 10 MG CAPSULE PO PRN (20:46)
[2018-07-05] MEDS ORDERED: hydrOXYzine PAMOATE 25 MG CAPSULE (FP) PO PRN (20:46)
[2018-07-05] MEDS ORDERED: NICOTINE POLACRILEX 2 MG GUM BUC PRN (20:46)
[2018-07-05] MEDS ORDERED: BACITRACIN 0.9 GM PACKET TP PRN (20:53)
[2018-07-05] MEDS: chlordiazePOXIDE HCL 25 MG CAPSULE PO SCH (23:07)
[2018-07-05] MEDS: THIAMINE HCL 100 MG TABLET (FP) PO SCH (23:07)
[2018-07-06] MEDS: chlordiazePOXIDE HCL 25 MG CAPSULE PO SCH ×4 (07:09→22:23)
[2018-07-06 09:59] LABS: HEMATOCRIT 37.7 % (35.4-49); HEMOGLOBIN 12.5 GM/dL (11.7-16.9); MCH 30.7 pg (25.7-33.7); MCHC 33.1 g/dl (32.0-35.9); MEAN CELL VOLUME 92.5 fl (80-96); MEAN PLT VOLUME 8.4 fl (7.5-11.1); PLATELET COUNT 224 K/MM3 (134-434); RBC 4.08 M/mm3 (4.00-5.60); RDW 13.1 % (11.9-15.9); WHITE BLOOD COUNT 6.5 K/mm3 (4.0-10.0)
[2018-07-06 10:25] LABS: ALBUMIN 3.3 g/dl (3.4-5.0); ALK PHOS 76 U/L (45-117); ANION GAP 6 MMOL/L (8-16); BILIRUBIN,TOTAL 0.8 mg/dL (0.2-1); BLOOD UREA NITROGEN 15 mg/dL (7-18); CALCIUM 8.4 mg/dL (8.5-10.1); CHLORIDE 100 mmol/L (98-107); CO2 29 mmol/L (21-32); CREATININE 0.8 mg/dL (0.55-1.3); GLUCOSE,RANDOM 94 mg/dL (74-106); POTASSIUM 3.9 mmol/L (3.5-5.1); SGOT/AST 47 U/L (15-37); SGPT/ALT 68 U/L (13-61); SODIUM 136 mmol/L (136-145); TOT PROT 6.8 g/dl (6.4-8.2)
[2018-07-06] MEDS: PRENATAL VITAMINS W/ FOLIC ACID TABLET (FP) PO SCH (11:08)
[2018-07-06] MEDS: NICOTINE 21 MG/24 HOURS TOPICAL PATCH TD SCH (11:08)
[2018-07-06 11:39] LABS: EPI CELLS 1.4 /HPF (0-5); URINE BACTERIA 5.1 /hpf (NEGATIVE); URINE CASTS 7 /hpf (0-8); URINE RBC 7 /hpf (0-4); URINE WBC 1 /hpf (0-5)
[2018-07-06 12:10] LABS: PH,URINE 5.5 (5.0-8.0); URINE APPEARANCE Turbid; URINE BILIRUBIN Negative (NEGATIVE); URINE COLOR Yellow; URINE GLUCOSE (UA) Negative (NEGATIVE); URINE KETONE Negative (NEGATIVE); URINE LEUK ESTERASE Negative (NEGATIVE); URINE NITRITE Negative (NEGATIVE); URINE PROTEIN Negative (NEGATIVE); URINE UROBILINOGEN 0.2 mg/dL (0.2-1.0)
--- NOTE | 2018-07-06 14:50 | PN ---
[facility] CIWA - CIWA Score Nausea/Vomitin-No Nausea/No Vomiting Muscle Tremors: None Anxiety: 4-Mod. Anxious/Guarded Agitation: 3 Paroxysmal Sweats: No Perspiration Orientation: 0-Oriented Tacttile Disturbances: 2-Mild Itch/Numbness/Burn Auditory Disturbances: 2-Mild Harshness/Frighten Visual Disturbances: 3-Moderate Sensitivity Headache: 0-None Present CIWA-Ar Total Score: 14 S Progress Note (SOAP) Subjective: Body Aches, Anxious, Interrupted Sleep, Restless, Poor Appetite. Objective: PATIENT A & O X 3, OBSERVED AMBULATING ON UNIT. IN NO ACUTE DISTRESS. 07/06/18 14:47 Vital Signs Temperature 97.6 F 07/06/18 13:54 Pulse Rate 89 07/06/18 13:54 Respiratory Rate 18 07/06/18 13:54 Blood Pressure 134/82 07/06/18 13:54 O2 Sat by Pulse Oximetry (%) Laboratory Tests 07/05/18 07/06/18 07/06/18 00:00 07:00 07:00 WBC 6.5 RBC 4.08 Hgb 12.5 Hct 37.7 MCV 92.5 MCH 30.7 MCHC 33.1 RDW 13.1 Plt Count 224 MPV 8.4 Sodium 136 Potassium 3.9 Chloride 100 Carbon Dioxide 29 Anion Gap 6 L BUN 15 Creatinine 0.8 Creat Clearance w eGFR 101.51 Random Glucose 94 Calcium 8.4 L Total Bilirubin 0.8 AST 47 H ALT 68 H Alkaline Phosphatase 76 Total Protein 6.8 Albumin 3.3 L Urine Color Yellow Urine Appearance Turbid Urine pH 5.5 Ur Specific [place] 1.025 Urine Protein Negative Urine Glucose (UA) Negative Urine Ketones Negative Urine Blood Negative Urine Nitrite Negative Urine Bilirubin Negative Urine Urobilinogen 0.2 Ur Leukocyte Esterase Negative Urine WBC (Auto) 1 Urine RBC (Auto) 7 Urine Casts (Auto) 7 U Epithel Cells (Auto) 1.4 Urine Bacteria (Auto) 5.1 LABS NOTED. RPR RESULT PENDING. 07/06/18 14:48 Assessment: 07/06/18 14:48 WITHDRAWAL SYMPTOMS. Plan: CONTINUE DETOX. ENSURE FOR CALORIC SUPPLEMENTATION.
--- NOTE | 2018-07-06 17:40 | CONSULT ---
[facility] Psychiatric Consult - Data Date of interview: 07/06/18 Admission source: [facility] Identifying data: Three visits at bedside. Patient declined psychiatric interview.
[2018-07-06] MEDS: THIAMINE HCL 100 MG TABLET (FP) PO SCH (22:23)
[2018-07-07] MEDS: chlordiazePOXIDE HCL 25 MG CAPSULE PO SCH ×3 (05:56→17:41)
[2018-07-07] MEDS: PRENATAL VITAMINS W/ FOLIC ACID TABLET (FP) PO SCH (11:45)
[2018-07-07] MEDS: NICOTINE 21 MG/24 HOURS TOPICAL PATCH TD SCH (11:45)
--- NOTE | 2018-07-07 15:53 | PN ---
S CIWA - CIWA Score Nausea/Vomitin-No Nausea/No Vomiting Muscle Tremors: None Anxiety: 5 Agitation: 1-Slight > Activity Paroxysmal Sweats: No Perspiration Orientation: 0-Oriented Tacttile Disturbances: 2-Mild Itch/Numbness/Burn Auditory Disturbances: 0-None Visual Disturbances: 2-Mild Sensitivity Headache: 0-None Present CIWA-Ar Total Score: 10 BHS Progress Note (SOAP) Subjective: Body Aches, Anxious, Restless, Interrupted Sleep. Objective: PATIENT A & O X 3. IN NO ACUTE DISTRESS. 07/07/18 15:50 Vital Signs Temperature 96.9 F L 07/07/18 09:11 Pulse Rate 85 07/07/18 09:11 Respiratory Rate 20 07/07/18 09:11 Blood Pressure 131/87 07/07/18 09:11 O2 Sat by Pulse Oximetry (%) Laboratory Tests 07/05/18 07/06/18 07/06/18 00:00 07:00 07:00 WBC 6.5 RBC 4.08 Hgb 12.5 Hct 37.7 MCV 92.5 MCH 30.7 MCHC 33.1 RDW 13.1 Plt Count 224 MPV 8.4 Sodium 136 Potassium 3.9 Chloride 100 Carbon Dioxide 29 Anion Gap 6 L BUN 15 Creatinine 0.8 Creat Clearance w eGFR 101.51 Random Glucose 94 Calcium 8.4 L Total Bilirubin 0.8 AST 47 H ALT 68 H Alkaline Phosphatase 76 Total Protein 6.8 Albumin 3.3 L Urine Color Yellow Urine Appearance Turbid Urine pH 5.5 Ur Specific [place] 1.025 Urine Protein Negative Urine Glucose (UA) Negative Urine Ketones Negative Urine Blood Negative Urine Nitrite Negative Urine Bilirubin Negative Urine Urobilinogen 0.2 Ur Leukocyte Esterase Negative Urine WBC (Auto) 1 Urine RBC (Auto) 7 Urine Casts (Auto) 7 U Epithel Cells (Auto) 1.4 Urine Bacteria (Auto) 5.1 RPR Titer 07/06/18 07:00 WBC RBC Hgb Hct MCV MCH MCHC RDW Plt Count MPV Sodium Potassium Chloride Carbon Dioxide Anion Gap BUN Creatinine Creat Clearance w eGFR Random Glucose Calcium Total Bilirubin AST ALT Alkaline Phosphatase Total Protein Albumin Urine Color Urine Appearance Urine pH Ur Specific [place] Urine Protein Urine Glucose (UA) Urine Ketones Urine Blood Urine Nitrite Urine Bilirubin Urine Urobilinogen Ur Leukocyte Esterase Urine WBC (Auto) Urine RBC (Auto) Urine Casts (Auto) U Epithel Cells (Auto) Urine Bacteria (Auto) RPR Titer Nonreactive LABS NOTED. Assessment: 07/07/18 15:51 WITHDRAWAL SYMPTOMS. Plan: CONTINUE DETOX.
[2018-07-07] MEDS ORDERED: chlordiazePOXIDE HCL 10 MG CAPSULE PO PRN (23:00)
[2018-07-07] MEDS: chlordiazePOXIDE HCL 10 MG CAPSULE PO SCH (23:01)
[2018-07-07] MEDS: THIAMINE HCL 100 MG TABLET (FP) PO SCH (23:01)
[2018-07-08] MEDS: chlordiazePOXIDE HCL 10 MG CAPSULE PO SCH ×2 (07:52→10:52)
[2018-07-08] MEDS ORDERED: BACITRACIN 0.9 GM PACKET TP SCH (10:00)
[2018-07-08] MEDS: PRENATAL VITAMINS W/ FOLIC ACID TABLET (FP) PO SCH (10:52)
[2018-07-08] MEDS: NICOTINE 21 MG/24 HOURS TOPICAL PATCH TD SCH (10:53)
[2018-07-08 13:58] VITALS: BP 127/73; PULSE 92; TEMP 98.6
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
--- NOTE | 2018-07-08 14:40 | DS ---
[facility] Detox Discharge Summary Admission Date: 07/05/18 Discharge Date: 07/08/18 - History Present History: Alcohol Dependence, Cannabis Dependence, Cocaine Dependence Additional Comments: PATIENT DENIES CURRENT WITHDRAWAL / DETOX SYMPTOMS AND REPORTS THAT HE FEELS WELL OVERALL AT TIME OF DISCHARGE FROM DETOX UNIT. PATIENT GOING TO [facility] ([place] FOR AFTERCARE. PATIENT WAS DISCHARGED FROM DETOX UNIT TO BE TAKEN OVER TO REHAB UNIT IN STABLE MEDICAL CONDITION. Pertinent Past History: Depression, History of Bipolar Disorder, Nicotine Dependence. - Physical Exam Results Vital Signs: Vital Signs Temperature 98.6 F 07/08/18 13:56 Pulse Rate 92 H 07/08/18 13:56 Respiratory Rate 16 07/08/18 13:56 Blood Pressure 127/73 07/08/18 13:56 O2 Sat by Pulse Oximetry (%) Pertinent Admission Physical Exam Findings: WITHDRAWAL SYMPTOMS. Laboratory Tests 07/05/18 07/06/18 07/06/18 00:00 07:00 07:00 WBC 6.5 RBC 4.08 Hgb 12.5 Hct 37.7 MCV 92.5 MCH 30.7 MCHC 33.1 RDW 13.1 Plt Count 224 MPV 8.4 Sodium 136 Potassium 3.9 Chloride 100 Carbon Dioxide 29 Anion Gap 6 L BUN 15 Creatinine 0.8 Creat Clearance w eGFR 101.51 Random Glucose 94 Calcium 8.4 L Total Bilirubin 0.8 AST 47 H ALT 68 H Alkaline Phosphatase 76 Total Protein 6.8 Albumin 3.3 L Urine Color Yellow Urine Appearance Turbid Urine pH 5.5 Ur Specific [place] 1.025 Urine Protein Negative Urine Glucose (UA) Negative Urine Ketones Negative Urine Blood Negative Urine Nitrite Negative Urine Bilirubin Negative Urine Urobilinogen 0.2 Ur Leukocyte Esterase Negative Urine WBC (Auto) 1 Urine RBC (Auto) 7 Urine Casts (Auto) 7 U Epithel Cells (Auto) 1.4 Urine Bacteria (Auto) 5.1 RPR Titer 07/06/18 07:00 WBC RBC Hgb Hct MCV MCH MCHC RDW Plt Count MPV Sodium Potassium Chloride Carbon Dioxide Anion Gap BUN Creatinine Creat Clearance w eGFR Random Glucose Calcium Total Bilirubin AST ALT Alkaline Phosphatase Total Protein Albumin Urine Color Urine Appearance Urine pH Ur Specific [place] Urine Protein Urine Glucose (UA) Urine Ketones Urine Blood Urine Nitrite Urine Bilirubin Urine Urobilinogen Ur Leukocyte Esterase Urine WBC (Auto) Urine RBC (Auto) Urine Casts (Auto) U Epithel Cells (Auto) Urine Bacteria (Auto) RPR Titer Nonreactive LABS NOTED. - Treatment Hospital Course: Detox Protocol Followed, Detoxed Safely, Responded well, Discharged Condition Good, Rehab Referral Accepted Patient has Accepted a Rehab Referral to: [facility] ([place], [place]). - Medication Discharge Medications: Ambulatory Orders Olanzapine [Zyprexa -] 5 mg PO HS #30 tablet 01/03/17 Olanzapine [Zyprexa -] 5 mg PO HS #30 tablet 01/20/17 - Diagnosis (1) Alcohol dependence with uncomplicated withdrawal Status: Acute (2) Cannabis abuse, uncomplicated Status: Acute (3) Cocaine dependence, uncomplicated Status: Acute (4) Depressed affect Status: Chronic (5) Homeless Status: Chronic (6) Nicotine dependence Status: Chronic Qualifiers: Nicotine product type: cigarettes Substance use status: in withdrawal Qualified Code(s): F17.213 - Nicotine dependence, cigarettes, with withdrawal - AMA Did Patient Leave Against Medical Advice: No
[2018-07-08] MEDS ORDERED: chlordiazePOXIDE HCL 10 MG CAPSULE PO SCH (23:00)
== END 2018-07-08 14:33 | disposition other institution (70) | DRG 774 ==
LOC: YASAS 19:01 → Y3N 21:51
PROVIDERS: ADMIT Surgery; ATTEND Surgery
PROC: HZ2ZZZZ Detoxification Services for Substance Abuse Treatment (ICD-10-PCS; principal; 2018-07-05)
DX: F10.230 Alcohol dependence with withdrawal, uncomplicated (principal); F14.20 Cocaine dependence, uncomplicated; F12.10 Cannabis abuse, uncomplicated; F17.213 Nicotine dependence, cigarettes, with withdrawal; F32.9 Major depressive disorder, single episode, unspecified; R00.0 Tachycardia, unspecified; Z59.0 Homelessness; S81.802A Unspecified open wound, left lower leg, initial encounter; X58.XXXA Exposure to other specified factors, initial encounter; Y93.9 Activity, unspecified; Y92.9 Unspecified place or not applicable
CPT/HCPCS: 36415; 80053; 81003; 85027; 86593

== ENCOUNTER 2018-07-08 14:35 | Inpatient (IN) | payer OTHER ==
--- NOTE | 2018-07-08 14:34 | DS ---
S Detox Discharge Summary - History Present History: Alcohol Dependence - Medication Discharge Medications: Ambulatory Orders Olanzapine [Zyprexa -] 5 mg PO HS #30 tablet 01/03/17 Olanzapine [Zyprexa -] 5 mg PO HS #30 tablet 01/20/17
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
[2018-07-08] MEDS ORDERED: MENTHOL/PHENOL 1 EACH UD MM PRN (14:45)
[2018-07-08] MEDS ORDERED: LOPERAMIDE HCL 2 MG CAPSULE PO PRN (14:45)
[2018-07-08] MEDS ORDERED: ACETAMINOPHEN 325 MG TABLET (FP) PO PRN (14:45)
[2018-07-08] MEDS ORDERED: guaiFENesin 200 MG/10 ML 10 ML UNIT-DOSE CUPS PO PRN (14:45)
[2018-07-08] MEDS ORDERED: MAG HYDROX/AL HYDROX/SIMETH 30 ML UNIT-DOSE CUP PO PRN (14:45)
[2018-07-08] MEDS ORDERED: P-EPHED 60MG/TRIPROLIDI 2.5MG TABLET PO PRN (14:45)
[2018-07-08] MEDS ORDERED: NICOTINE POLACRILEX 2 MG GUM BUC PRN (14:45)
[2018-07-08] MEDS ORDERED: MAGNESIUM HYDROX 2400MG/30ML ORAL SUSPENSION 30 ML CUP PO PRN (14:45)
[2018-07-08] MEDS ORDERED: MAGNESIUM CITRATE 300 ML BOTTLE PO PRN (14:45)
[2018-07-08] MEDS ORDERED: IBUPROFEN 400 MG TABLET (FP) PO PRN (14:45)
--- NOTE | 2018-07-08 16:20 | PN ---
[facility] Progress Note Note: Round 2X1.5cm sore on top of foot with dark eschar. silvedine ordered.
[2018-07-08] MEDS: BACITRACIN 0.9 GM PACKET TP SCH (21:36)
[2018-07-08] MEDS: THIAMINE HCL 100 MG TABLET (FP) PO SCH (21:38)
[2018-07-08] MEDS ORDERED: MELATONIN 5 MG TABLETS PO PRN (22:00)
[2018-07-09] MEDS ORDERED: HYDROCORTISONE 0.5% TOPICAL OINTMENT TUBE TP PRN (10:00)
--- NOTE | 2018-07-09 10:19 | PN ---
S Progress Note Note: PATIENT SEEN FOR DISCOLORATION ON RIGHT SIDE OF FOREHEAD. MILD ITCHING TO SITE. NO OPEN AREAS. SMALL MULTIPLE DARK DISCOLORED PATCHES TO RIGHT SIDE OF SCALP/ FOREHEAD. NO SWELLING OR ACTIVE BLEEDING. HAS HYDROCORTISONE CREAM ORDERED. WILL CONTINUE AND MONITOR CLINICALLY FOR NOW. Vital Signs Temperature Pulse Rate Respiratory Rate 20 07/09/18 03:30 Blood Pressure O2 Sat by Pulse Oximetry (%) Vital Signs (72 hours) 07/09/18 07/09/18 00:30 03:30 Respiratory 20 20 Rate
[2018-07-09] MEDS: BACITRACIN 0.9 GM PACKET TP SCH ×2 (10:44→22:27)
[2018-07-09] MEDS: NICOTINE 21 MG/24 HOURS TOPICAL PATCH TD SCH (10:44)
[2018-07-09] MEDS: PRENATAL VITAMINS W/ FOLIC ACID TABLET (FP) PO SCH (10:44)
[2018-07-09] MEDS: SILVER SULFADIAZINE 1% TOP CREAM 50 GM JAR TP SCH (10:46)
--- NOTE | 2018-07-09 13:58 | CONSULT ---
[facility] Psychiatric Consult - Data Date of interview: 07/09/18 Admission source: 3N Identifying data: Mr Conley is a 52 years old single Black male, father of 17 years old daughter, unemployed on public assistance, domiciled seeking inpatient rehab treatment for alcohol and cocaine Substance Abuse History: Reports history of alcohol and cocaine use. Refer to addiction counselor's summary for further information Medical History: Significant for hepatitis B antibodies and history of orthosurgery on left knee in 2002. Smokes 12 cigarettes daily Psychiatric History: Patient is well known to travel writer from a previous admission in this facility. Reports that he has been seeing psychiatrist since the age of 9. Reports history Bipolar depression with multiple psychiatric admissions including to [facility]. Most recent one was in 2016 to [facility] for [facility]. Reports non-compliance with [employer] care. Told travel writer that he wasseeing a psychiatrist while incarcerated in [facility] from March 2018 to June 26, 2018 and he was prescribed Zyprexa 5 mg po HS and Benadryl 50 mg po HS. At present, Physical/Sexual Abuse/Trauma History: Patient denies history of sexual abuse. Additional Comment: Reports history of multiple arrests including 7 felony convictions. Reports being on parole till February 2020 Mental Status Exam - Mental Status Exam Alert and Oriented to: Time, Place, Person Cognitive Function: Fair Patient Appearance: Well Groomed Mood: Hopeful, Euthymic Patient Behavior: Cooperative Speech Pattern: Clear Voice Loudness: Normal Thought Process: Intact, Goal Oriented Thought Disorder: Not Present Hallucinations: Denies Suicidal Ideation: Denies Homicidal Ideation: Denies Insight/Judgement: Fair Sleep: Poorly Appetite: Good Muscle strength/Tone: Normal Gait/Station: Normal Psychiatric Findings - Problem List ([place] 1, 2,3) (1) Bipolar disorder Current Visit: No Status: Chronic Comment: As per self-report. (2) Substance-induced sleep disorder Current Visit: Yes Status: Acute (3) Alcohol dependence Current Visit: No Status: Acute (4) Cocaine dependence Current Visit: No Status: Chronic (5) Nicotine dependence Current Visit: No Status: Chronic Qualifiers: Nicotine product type: cigarettes Substance use status: in withdrawal Qualified Code(s): F17.213 - Nicotine dependence, cigarettes, with withdrawal (6) Hepatitis B antibody positive Current Visit: Yes Status: Chronic - Initial Treatment Plan Initial Treatment Plan: 1) Continue Zyprexa 5 mg po HS. 2) Continue inpatient rehabilitation
[2018-07-09] MEDS: THIAMINE HCL 100 MG TABLET (FP) PO SCH (22:27)
[2018-07-10] MEDS: SILVER SULFADIAZINE 1% TOP CREAM 50 GM JAR TP SCH (10:02)
[2018-07-10] MEDS: NICOTINE 21 MG/24 HOURS TOPICAL PATCH TD SCH ×2 (10:02→10:03)
[2018-07-10] MEDS: PRENATAL VITAMINS W/ FOLIC ACID TABLET (FP) PO SCH (10:02)
[2018-07-10] MEDS: BACITRACIN 0.9 GM PACKET TP SCH ×2 (10:02→21:41)
[2018-07-10] MEDS: THIAMINE HCL 100 MG TABLET (FP) PO SCH (21:41)
[2018-07-11] MEDS: PRENATAL VITAMINS W/ FOLIC ACID TABLET (FP) PO SCH (10:05)
[2018-07-11] MEDS: BACITRACIN 0.9 GM PACKET TP SCH ×2 (10:05→21:39)
[2018-07-11] MEDS: SILVER SULFADIAZINE 1% TOP CREAM 50 GM JAR TP SCH (10:05)
[2018-07-11] MEDS: NICOTINE 21 MG/24 HOURS TOPICAL PATCH TD SCH (10:05)
[2018-07-11] MEDS: THIAMINE HCL 100 MG TABLET (FP) PO SCH (21:38)
[2018-07-12] MEDS: BACITRACIN 0.9 GM PACKET TP SCH ×2 (10:00→22:18)
[2018-07-12] MEDS: PRENATAL VITAMINS W/ FOLIC ACID TABLET (FP) PO SCH (10:00)
[2018-07-12] MEDS: NICOTINE 21 MG/24 HOURS TOPICAL PATCH TD SCH (10:01)
[2018-07-12] MEDS: SILVER SULFADIAZINE 1% TOP CREAM 50 GM JAR TP SCH (10:01)
[2018-07-12] MEDS: THIAMINE HCL 100 MG TABLET (FP) PO SCH (22:19)
[2018-07-13] MEDS: BACITRACIN 0.9 GM PACKET TP SCH (10:36)
[2018-07-13] MEDS: PRENATAL VITAMINS W/ FOLIC ACID TABLET (FP) PO SCH (10:36)
[2018-07-13] MEDS: SILVER SULFADIAZINE 1% TOP CREAM 50 GM JAR TP SCH ×5 (10:36→16:19)
[2018-07-13] MEDS: NICOTINE 21 MG/24 HOURS TOPICAL PATCH TD SCH (10:36)
[2018-07-13] MEDS: THIAMINE HCL 100 MG TABLET (FP) PO SCH (21:53)
[2018-07-14] MEDS: PRENATAL VITAMINS W/ FOLIC ACID TABLET (FP) PO SCH (10:05)
[2018-07-14] MEDS: SILVER SULFADIAZINE 1% TOP CREAM 50 GM JAR TP SCH (10:06)
[2018-07-14] MEDS: NICOTINE 21 MG/24 HOURS TOPICAL PATCH TD SCH (10:06)
[2018-07-14] MEDS: THIAMINE HCL 100 MG TABLET (FP) PO SCH (21:50)
[2018-07-15] MEDS: NICOTINE 21 MG/24 HOURS TOPICAL PATCH TD SCH (10:21)
[2018-07-15] MEDS: PRENATAL VITAMINS W/ FOLIC ACID TABLET (FP) PO SCH (10:21)
[2018-07-15] MEDS: SILVER SULFADIAZINE 1% TOP CREAM 50 GM JAR TP SCH (10:22)
[2018-07-15] MEDS: THIAMINE HCL 100 MG TABLET (FP) PO SCH (22:35)
[2018-07-16] MEDS: SILVER SULFADIAZINE 1% TOP CREAM 50 GM JAR TP SCH (10:35)
[2018-07-16] MEDS: NICOTINE 21 MG/24 HOURS TOPICAL PATCH TD SCH (10:35)
[2018-07-16] MEDS: PRENATAL VITAMINS W/ FOLIC ACID TABLET (FP) PO SCH (10:35)
[2018-07-17] MEDS: SILVER SULFADIAZINE 1% TOP CREAM 50 GM JAR TP SCH (10:22)
[2018-07-17] MEDS: NICOTINE 21 MG/24 HOURS TOPICAL PATCH TD SCH (10:22)
[2018-07-17] MEDS: PRENATAL VITAMINS W/ FOLIC ACID TABLET (FP) PO SCH (10:22)
[2018-07-17] MEDS: THIAMINE HCL 100 MG TABLET (FP) PO SCH ×2 (15:02→22:00)
[2018-07-18] MEDS: NICOTINE 21 MG/24 HOURS TOPICAL PATCH TD SCH (10:23)
[2018-07-18] MEDS: PRENATAL VITAMINS W/ FOLIC ACID TABLET (FP) PO SCH (10:23)
[2018-07-18] MEDS: SILVER SULFADIAZINE 1% TOP CREAM 50 GM JAR TP SCH (10:23)
[2018-07-18] MEDS: THIAMINE HCL 100 MG TABLET (FP) PO SCH (22:38)
[2018-07-19] MEDS: PRENATAL VITAMINS W/ FOLIC ACID TABLET (FP) PO SCH (10:03)
[2018-07-19] MEDS: SILVER SULFADIAZINE 1% TOP CREAM 50 GM JAR TP SCH (10:04)
[2018-07-19] MEDS: NICOTINE 21 MG/24 HOURS TOPICAL PATCH TD SCH (10:04)
[2018-07-19] MEDS: THIAMINE HCL 100 MG TABLET (FP) PO SCH (22:09)
[2018-07-20] MEDS: PRENATAL VITAMINS W/ FOLIC ACID TABLET (FP) PO SCH (10:04)
[2018-07-20] MEDS: SILVER SULFADIAZINE 1% TOP CREAM 50 GM JAR TP SCH (10:04)
[2018-07-20] MEDS: NICOTINE 21 MG/24 HOURS TOPICAL PATCH TD SCH (10:05)
[2018-07-20] MEDS: THIAMINE HCL 100 MG TABLET (FP) PO SCH (21:41)
[2018-07-21] MEDS: PRENATAL VITAMINS W/ FOLIC ACID TABLET (FP) PO SCH (09:54)
[2018-07-21] MEDS: NICOTINE 21 MG/24 HOURS TOPICAL PATCH TD SCH (09:55)
[2018-07-21] MEDS: SILVER SULFADIAZINE 1% TOP CREAM 50 GM JAR TP SCH (09:55)
[2018-07-21] MEDS: THIAMINE HCL 100 MG TABLET (FP) PO SCH (21:53)
[2018-07-22] MEDS: PRENATAL VITAMINS W/ FOLIC ACID TABLET (FP) PO SCH (10:25)
[2018-07-22] MEDS: SILVER SULFADIAZINE 1% TOP CREAM 50 GM JAR TP SCH (10:25)
[2018-07-22] MEDS: NICOTINE 21 MG/24 HOURS TOPICAL PATCH TD SCH (10:26)
[2018-07-22] MEDS: THIAMINE HCL 100 MG TABLET (FP) PO SCH (21:55)
[2018-07-23] MEDS: PRENATAL VITAMINS W/ FOLIC ACID TABLET (FP) PO SCH (10:03)
[2018-07-23] MEDS: NICOTINE 21 MG/24 HOURS TOPICAL PATCH TD SCH (10:06)
[2018-07-23] MEDS: SILVER SULFADIAZINE 1% TOP CREAM 50 GM JAR TP SCH (10:06)
[2018-07-23] MEDS: THIAMINE HCL 100 MG TABLET (FP) PO SCH (21:53)
[2018-07-24] MEDS: PRENATAL VITAMINS W/ FOLIC ACID TABLET (FP) PO SCH (10:13)
[2018-07-24] MEDS: NICOTINE 21 MG/24 HOURS TOPICAL PATCH TD SCH (10:13)
[2018-07-24] MEDS: SILVER SULFADIAZINE 1% TOP CREAM 50 GM JAR TP SCH (10:13)
[2018-07-24] MEDS: THIAMINE HCL 100 MG TABLET (FP) PO SCH (21:26)
[2018-07-25] MEDS: NICOTINE 21 MG/24 HOURS TOPICAL PATCH TD SCH (09:55)
[2018-07-25] MEDS: PRENATAL VITAMINS W/ FOLIC ACID TABLET (FP) PO SCH (09:55)
[2018-07-25] MEDS: SILVER SULFADIAZINE 1% TOP CREAM 50 GM JAR TP SCH (09:56)
[2018-07-25] MEDS: THIAMINE HCL 100 MG TABLET (FP) PO SCH (21:32)
[2018-07-26] MEDS: SILVER SULFADIAZINE 1% TOP CREAM 50 GM JAR TP SCH (10:44)
[2018-07-26] MEDS: PRENATAL VITAMINS W/ FOLIC ACID TABLET (FP) PO SCH (10:44)
[2018-07-26] MEDS: NICOTINE 21 MG/24 HOURS TOPICAL PATCH TD SCH (10:44)
[2018-07-26] MEDS: THIAMINE HCL 100 MG TABLET (FP) PO SCH (23:41)
[2018-07-27] MEDS: SILVER SULFADIAZINE 1% TOP CREAM 50 GM JAR TP SCH (10:18)
[2018-07-27] MEDS: NICOTINE 21 MG/24 HOURS TOPICAL PATCH TD SCH (10:18)
[2018-07-27] MEDS: PRENATAL VITAMINS W/ FOLIC ACID TABLET (FP) PO SCH (10:18)
[2018-07-27] MEDS: THIAMINE HCL 100 MG TABLET (FP) PO SCH (21:58)
[2018-07-28 06:57] VITALS: BP 127/74; PULSE 64; TEMP 97.9
--- NOTE | 2018-07-28 09:25 | PN ---
BHS Progress Note (SOAP) Subjective: Patient is being discharged administratively. Objective: Medically Stable for discharge. 07/28/18 09:23 Vital Signs (72 hours) 07/26/18 07/26/18 07/26/18 00:30 03:30 07:14 Temperature 97.7 F Pulse Rate 66 Respiratory 18 18 18 Rate Blood Pressure 126/77 07/27/18 07/27/18 07/27/18 00:30 03:30 06:48 Temperature 98.2 F Pulse Rate 67 Respiratory 20 20 18 Rate Blood Pressure 124/70 07/28/18 07/28/18 03:30 06:57 Temperature 97.9 F Pulse Rate 64 Respiratory 18 18 Rate Blood Pressure 127/74 07/28/18 09:24 Assessment: Medically stable for discharge. Discharge dx: ETOH dependence, chronic, Cocaine dependence, Chronic Nicotine dependence, chronic 07/28/18 09:25 Plan: Patient has no medications that need to be prescribed at this time.
[2018-07-28] MEDS: NICOTINE 21 MG/24 HOURS TOPICAL PATCH TD SCH (10:12)
[2018-07-28] MEDS: PRENATAL VITAMINS W/ FOLIC ACID TABLET (FP) PO SCH (10:12)
[2018-07-28] MEDS: SILVER SULFADIAZINE 1% TOP CREAM 50 GM JAR TP SCH (10:13)
== END 2018-07-28 11:15 | disposition home or self-care (01) | DRG 772 ==
LOC: YASAS 14:35 → Y3W 14:36
PROVIDERS: ADMIT Neuromusculoskeletal Medicine & OMM; ATTEND Neuromusculoskeletal Medicine & OMM
PROC: HZ42ZZZ Group Counseling for Substance Abuse Treatment, Cognitive-Behavioral (ICD-10-PCS; principal; 2018-07-08)
DX: F10.230 Alcohol dependence with withdrawal, uncomplicated (principal); F14.20 Cocaine dependence, uncomplicated; F17.210 Nicotine dependence, cigarettes, uncomplicated; F31.9 Bipolar disorder, unspecified; F19.282 Other psychoactive substance dependence with psychoactive substance-induced sleep disorder; R76.8 Other specified abnormal immunological findings in serum; L98.9 Disorder of the skin and subcutaneous tissue, unspecified

== ENCOUNTER 2019-11-22 21:06 | Inpatient (IN) | payer OTHER ==
[2019-11-22 21:24] VITALS: BMI 23.3
--- NOTE | 2019-11-22 21:33 | HP ---
<Aileen Biggs - Last Filed: 11/22/19 22:02> CIWA Score Nausea/Vomitin-No Nausea/No Vomiting Muscle Tremors: 1-None Visible, but [place] Anxiety: 4-Mod. Anxious/Guarded Agitation: 3 Paroxysmal Sweats: No Perspiration Orientation: 3-Disoriented Date>2 days Tacttile Disturbances: 0-None Auditory Disturbances: 0-None Visual Disturbances: 0-None Headache: 0-None Present CIWA-Ar Total Score: 11 - Admission Criteria OASAS Guidelines: Admission for Medically Managed Detox: Requires at least one of the followin. CIWA greater than 12 2. Seizures within the past 24 hours 3. Delirium tremens within the past 24 hours 4. Hallucinations within the past 24 hours 5. Acute intervention needed for co occurring medical disorder 6. Acute intervention needed for co occurring psychiatric disorder 7. Severe withdrawal that cannot be handled at a lower level of care (continued vomiting, continued diarrhea, abnormal vital signs) requiring intravenous medication and/or fluids 8. Admitting History and Physical - Smoking History Smoking history: Current every day smoker Have you smoked in the past 12 months: Yes Aproximately how many cigarettes per day: 12 - Alcohol/Substance Use Hx Alcohol Use: Yes Admission ROS S - HPI Chief Complaint: detox from alcohol Allergies/Adverse Reactions: Allergies Allergy/AdvReac Type Severity Reaction Status Date / Time No Known Allergies Allergy Verified 11/22/19 23:17 History of Present Illness: 53 y.o. male requesting detox from alcohol, ,relapsed after previous admission at this facility July 2018 , reports daily use 6-7 cans of beer/day and 1 pint liquor /day 4 days / week , reports anxiety and tremors if not drinking alcohol. Denies seizures, admits to blackouts , latest use was today . cocaine : 2 gr /day via inhalation tobacco : 1 ppd PMHX / PSHX : denies Exam Limitations: Clinical Condition - Review of Systems Constitutional: Loss of Appetite, Unintentional Wgt. Loss (reports loss of 20 lbs) EENT: reports: No Symptoms Reported, Other (reading glasses) Respiratory: reports: No Symptoms reported Cardiac: reports: No Symptoms Reported GI: reports: Poor Appetite : reports: No Symptoms Reported Musculoskeletal: reports: No Symptoms Reported Integumentary: reports: Other (scratched arm on a wall) Neuro: reports: No Symptoms reported Endocrine: reports: No Symptoms Reported Hematology: reports: No Symptoms Reported Psychiatric: reports: Agitated, Anxious, Disorientated Patient History - Patient Medical History Hx Anemia: No Hx Asthma: No Hx Chronic Obstructive Pulmonary Disease (COPD): No Hx Cancer: No Hx Cardiac Disorders: No Hx Congestive Heart Failure: No Hx Hypertension: No Hx Hypercholesterolemia: No Hx Pacemaker: No HX Cerebrovascular Accident: No Hx Seizures: No Hx Dementia: No Hx Diabetes: No Hx Gastrointestinal Disorders: No Hx Liver Disease: Yes (unknown to pt, pos. for hep B antibodies) Hx Genitourinary Disorders: No Hx Sexually Transmitted Disorders: No Hx Renal Disease (ESRD): No Hx Thyroid Disease: No Hx Human Immunodeficiency Virus (HIV): No Hx Hepatitis C: No Hx Depression: No Hx Suicide Attempt: No Hx Bipolar Disorder: Yes (rispedal ) Hx Schizophrenia: No - Patient Surgical History Past Surgical History: Yes Hx Neurologic Surgery: No Hx Cataract Extraction: No Hx Cardiac Surgery: No Hx Lung Surgery: No Hx Breast Surgery: No Hx Breast Biopsy: No Hx Abdominal Surgery: No Hx Appendectomy: No Hx Cholecystectomy: No Hx Genitourinary Surgery: No Hx Section: No Hx Orthopedic Surgery: Yes (L KNEE SX IN 2002) Anesthesia Reaction: No - PPD History Date: 07/07/18 Results: 0 mm - Smoking Cessation Smoking history: Current every day smoker Have you smoked in the past 12 months: Yes Aproximately how many cigarettes per day: 12 Cigars Per Day: 0 Hx Chewing Tobacco Use: No Admission Physical Exam BHS - Vital Signs Vital Signs: Vital Signs - 24 hr 11/22/19 21:23 Temperature 98.1 F Pulse Rate 82 Respiratory 18 Rate Blood Pressure 147/91 - Physical General Appearance: Yes: Disheveled, Irritable, Anxious HEENTM: Yes: EOMI, Hearing grossly Normal, Normocephalic, Normal Voice Respiratory: Yes: Lungs Clear Neck: Yes: No masses,lesions,Nodules, Trachea in good position Cardiology: Yes: Regular Rhythm, Regular Rate, S1, S2 Abdominal: Yes: Non Tender, Soft Musculoskeletal: Yes: Gait Steady Extremities: Yes: Normal Inspection, Normal Range of Motion, Non-Tender Neurological: Yes: Alert, Motor Strength 5/5, Disoriented Integumentary: Yes: Warm, Other (areas of dehiscence and open excoriations LLE ( large ) , R LE ( small ) , right forearm , posterior thorax ( reports fall on sidewalk while intoxicated )) - Diagnostic (1) Alcohol dependence with uncomplicated withdrawal Current Visit: Yes Status: Acute (2) Cocaine dependence, uncomplicated Current Visit: Yes Status: Chronic (3) Nicotine dependence Current Visit: Yes Status: Chronic Qualifiers: Nicotine product type: cigarettes Breathalyzer - Breathalyzer Breathalyzer: 0 Urine Drug Screen - Test Device Lot number: [id number] Expiration date: 07/12/21 - Control Is test valid?: Yes - Results Drug screen NEGATIVE: No Urine drug screen results: [facility]-Cocaine Inpatient Rehab Admission - Rehab Decision to Admit Inpatient rehab admission?: No <Abigail Amador - Last Filed: 11/23/19 01:25> CIWA Score - Admission Criteria OASAS Guidelines: Admission for Medically Managed Detox: Requires at least one of the followin. CIWA greater than 12 2. Seizures within the past 24 hours 3. Delirium tremens within the past 24 hours 4. Hallucinations within the past 24 hours 5. Acute intervention needed for co occurring medical disorder 6. Acute intervention needed for co occurring psychiatric disorder 7. Severe withdrawal that cannot be handled at a lower level of care (continued vomiting, continued diarrhea, abnormal vital signs) requiring intravenous medication and/or fluids 8. Patient History - Substances abused Alcohol Substance route: Oral Frequency: 3-6 times per week Amount used: 12 cans of beer and 1 pint of liquor Age of first use: 20 Date of last use: 11/22/19 Cocaine Substance route: Inhalation Frequency: 3-6 times per week Amount used: 2 grams Age of first use: 20 Date of last use: 11/20/19 Admission Physical Exam S - Vital Signs Vital Signs: Vital Signs - 24 hr 11/22/19 11/22/19 21:23 23:19 Temperature 98.1 F 98.1 F Pulse Rate 82 82 Respiratory 18 18 Rate Blood Pressure 147/91 147/91 - Physical Integumentary: Yes: Other Cleared for Admission BHS - Detox or Rehab Detox Regimen/Protocol: Ativan Claeared for Rehab Admission: No
[2019-11-22] MEDS ORDERED: MELATONIN 5 MG TABLETS PO PRN (22:02)
[2019-11-22] MEDS ORDERED: MENTHOL/PHENOL 1 EACH UD MM PRN (22:02)
[2019-11-22] MEDS ORDERED: MAGNESIUM CITRATE 300 ML BOTTLE PO PRN (22:02)
[2019-11-22] MEDS ORDERED: NICOTINE POLACRILEX 2 MG GUM BUC PRN (22:02)
[2019-11-22] MEDS ORDERED: ACETAMINOPHEN 325 MG TABLET (FP) PO PRN ×2 (22:02)
[2019-11-22] MEDS ORDERED: METHOCARBAMOL 500 MG TABLET PO PRN (22:02)
[2019-11-22] MEDS ORDERED: hydrOXYzine PAMOATE 25 MG CAPSULE (FP) PO PRN (22:02)
[2019-11-22] MEDS ORDERED: MAG HYDROX/AL HYDROX/SIMETH 30 ML UNIT-DOSE CUP PO PRN (22:02)
[2019-11-22] MEDS ORDERED: BISMUTH SUBSALICYLATE 524 MG/30 ML UD PO PRN (22:02)
[2019-11-22] MEDS ORDERED: MAGNESIUM HYDROX 2400MG/30ML ORAL SUSPENSION 30 ML CUP PO PRN (22:02)
[2019-11-22] MEDS ORDERED: IBUPROFEN 400 MG TABLET (FP) PO PRN (22:02)
[2019-11-23] MEDS ORDERED: LORazepam 1 MG TABLET PO PRN (00:13)
[2019-11-23] MEDS: BACITRACIN/POLYMYXIN B SULFATE 15 GM TUBE TP SCH ×3 (01:16→22:24)
[2019-11-23] MEDS: LORazepam 2 MG TABLET PO SCH ×2 (06:06→12:34)
--- NOTE | 2019-11-23 11:24 | PN ---
S CIWA - CIWA Score Nausea/Vomitin-Mild Nausea/No Vomiting Muscle Tremors: 2 Anxiety: 2 Agitation: 2 Paroxysmal Sweats: No Perspiration Orientation: 0-Oriented Tacttile Disturbances: 1-Very Mild Itch/Numbness Auditory Disturbances: 0-None Visual Disturbances: 0-None Headache: 2-Mild CIWA-Ar Total Score: 10 BHS Progress Note (SOAP) Subjective: alert,irritable,anxious,interrupted sleep,aching pain,nausea Objective: 11/23/19 11:24 Vital Signs Temperature 98.4 F 11/23/19 09:00 Pulse Rate 89 11/23/19 09:00 Respiratory Rate 18 11/23/19 09:00 Blood Pressure 138/79 11/23/19 09:00 O2 Sat by Pulse Oximetry (%) 98 11/23/19 06:12 11/23/19 11:24 labs pending Assessment: 11/23/19 11:25 withdrawal symptom Plan: continue detox ativan regiment,poor oral intake,ensure plus 120 mls po bid
--- NOTE | 2019-11-23 12:08 | CONSULT ---
[facility] Psychiatric Consult - Data Date of interview: 11/23/19 Admission source: Self-referred Identifying data: Mr Conley is a 53 years old single Black male, father of 18 years old daughter, unemployed on public assistance, domiciled seeking detox treatment for alcohol and cocaine Substance Abuse History: Reports history of alcohol and cocaine use. Refer to addiction counselor's summary for further information Medical History: Significant for hepatitis B antibodies and history of orthosurgery on left knee in 2002. Smokes 12 cigarettes daily Psychiatric History: Patient is known to check writer for multiple previous admission to this facility. Reports that he has been seeing psychiatrist since the age of 9. Reports history Bipolar depression with multiple psychiatric admissions including to [facility], [facility], [facility]. Most recent one was in 2016 to [facility] for depression.Reports receiving psychiatric treatment while incarcerated in [facility] from March 2018 to June 26, 2018. He said that he was prescribed Zyprexa 5 mg po HS and Benadryl 50 mg po HS. Since then he has not seen psychiatrists except during admision to inpatient detox/rehab. According to record, his most recent admission to this facility was on 07/09/18 and he was prescribed Zyprexa 5 mg/hs. Reports that he has been off medications since dicharge from this facility on 07/28/18. Denies previous suicidal attempt. At present, denies experiencing psychotic, manic or depressive symptoms, S/H ideations. However, he is very irritable, somewhat hostile towards check writer. He was offered resuming his psychotropic medication and he declined Mental Status Exam - Mental Status Exam Alert and Oriented to: Time, Place, Person Cognitive Function: Fair Patient Appearance: Disheveled Mood: Angry, Hostile (mildly), Irritable Affect: Appropriate Patient Behavior: Cooperative (superficially) Speech Pattern: Clear Voice Loudness: Normal Thought Process: Intact, Goal Oriented Thought Disorder: Not Present Hallucinations: Denies Suicidal Ideation: Denies Homicidal Ideation: Denies Insight/Judgement: Poor Sleep: Well Appetite: Good Muscle strength/Tone: Normal Gait/Station: Normal Psychiatric Findings - Problem List ([place] 1, 2,3) (1) Bipolar disorder Current Visit: No Status: Chronic Comment: As per self-report. (2) Substance induced mood disorder Current Visit: Yes Status: Acute (3) Substance-induced sleep disorder Current Visit: No Status: Acute (4) Alcohol dependence with uncomplicated withdrawal Current Visit: Yes Status: Acute (5) Cocaine dependence, uncomplicated Current Visit: Yes Status: Acute (6) Cannabis abuse, uncomplicated Current Visit: No Status: Acute (7) Nicotine dependence Current Visit: Yes Status: Chronic Qualifiers: Nicotine product type: cigarettes (8) Hepatitis B antibody positive Current Visit: No Status: Chronic - Initial Treatment Plan Initial Treatment Plan: Continue inpatient detoxification
[2019-11-23 12:20] LABS: HEMATOCRIT 40.1 % (35.4-49); HEMOGLOBIN 13.3 GM/dL (11.7-16.9); MCH 31.9 pg (25.7-33.7); MCHC 33.1 g/dl (32.0-35.9); MEAN CELL VOLUME 96.6 fl (80-96); MEAN PLT VOLUME 8.1 fl (7.5-11.1); PLATELET COUNT 334 K/MM3 (134-434); RBC 4.15 M/mm3 (4.00-5.60); RDW 12.4 % (11.9-15.9); WHITE BLOOD COUNT 5.9 K/mm3 (4.0-10.0)
[2019-11-23 12:29] LABS: POTASSIUM 3.9 mmol/L (3.5-5.1)
[2019-11-23] MEDS: PRENATAL VITAMINS W/ FOLIC ACID TABLET (FP) PO SCH (12:29)
[2019-11-23] MEDS ORDERED: chlordiazePOXIDE HCL 25 MG CAPSULE PO PRN (12:36)
--- NOTE | 2019-11-23 12:39 | PN ---
BHS Progress Note Note: patient did not want ativan regimen,would like regimen to be changed to librium
[2019-11-23 12:41] LABS: ALBUMIN 3.6 g/dl (3.4-5.0); BILIRUBIN,TOTAL 0.4 mg/dL (0.2-1); BLOOD UREA NITROGEN 13.2 mg/dL (7-18); CALCIUM 8.9 mg/dL (8.5-10.1); TOT PROT 7.4 g/dl (6.4-8.2)
[2019-11-23] MEDS: chlordiazePOXIDE HCL 25 MG CAPSULE PO SCH ×2 (17:19→22:25)
[2019-11-23] MEDS: THIAMINE HCL 100 MG TABLET (FP) PO SCH (22:25)
[2019-11-24] MEDS ORDERED: LORazepam 1 MG TABLET PO SCH (05:00)
[2019-11-24] MEDS: chlordiazePOXIDE HCL 25 MG CAPSULE PO SCH ×4 (05:06→23:28)
[2019-11-24] MEDS: PRENATAL VITAMINS W/ FOLIC ACID TABLET (FP) PO SCH (10:10)
[2019-11-24] MEDS: BACITRACIN/POLYMYXIN B SULFATE 15 GM TUBE TP SCH ×2 (10:10→23:38)
--- NOTE | 2019-11-24 11:30 | PN ---
[facility] CIWA - CIWA Score Nausea/Vomitin-Mild Nausea/No Vomiting Muscle Tremors: 2 Anxiety: 2 Agitation: 2 Paroxysmal Sweats: No Perspiration Orientation: 0-Oriented Tacttile Disturbances: 1-Very Mild Itch/Numbness Auditory Disturbances: 0-None Visual Disturbances: 0-None Headache: 1-Very Mild CIWA-Ar Total Score: 9 S Progress Note (SOAP) Subjective: alert,irritable,interrupted sleep,tremor,pain in the body and back,aching pain Objective: 11/24/19 11:39 Vital Signs Temperature 98.6 F 11/24/19 09:06 Pulse Rate 90 11/24/19 09:06 Respiratory Rate 18 11/24/19 09:06 Blood Pressure 129/80 11/24/19 09:06 O2 Sat by Pulse Oximetry (%) 99 11/24/19 05:03 Laboratory Last Values WBC 5.9 K/mm3 (4.0-10.0) 11/23/19 08:30 RBC 4.15 M/mm3 (4.00-5.60) 11/23/19 08:30 Hgb 13.3 GM/dL (11.7-16.9) 11/23/19 08:30 Hct 40.1 % (35.4-49) 11/23/19 08:30 MCV 96.6 fl (80-96) H 11/23/19 08:30 MCH 31.9 pg (25.7-33.7) 11/23/19 08:30 MCHC 33.1 g/dl (32.0-35.9) 11/23/19 08:30 RDW 12.4 % (11.9-15.9) 11/23/19 08:30 Plt Count 334 K/MM3 (134-434) D 11/23/19 08:30 MPV 8.1 fl (7.5-11.1) 11/23/19 08:30 Sodium 140 mmol/L (136-145) 11/23/19 08:30 Potassium 3.9 mmol/L (3.5-5.1) 11/23/19 08:30 Chloride 106 mmol/L (98-107) 11/23/19 08:30 Carbon Dioxide 27 mmol/L (21-32) 11/23/19 08:30 Anion Gap 7 MMOL/L (8-16) L 11/23/19 08:30 BUN 13.2 mg/dL (7-18) 11/23/19 08:30 Creatinine 1.0 mg/dL (0.55-1.3) 11/23/19 08:30 Est GFR (CKD-EPI)AfAm 99.15 11/23/19 08:30 Est GFR (CKD-EPI)NonAf 85.55 11/23/19 08:30 Random Glucose 70 mg/dL (74-106) L 11/23/19 08:30 Calcium 8.9 mg/dL (8.5-10.1) 11/23/19 08:30 Total Bilirubin 0.4 mg/dL (0.2-1) 11/23/19 08:30 AST 16 U/L (15-37) 11/23/19 08:30 ALT 21 U/L (13-61) 11/23/19 08:30 Alkaline Phosphatase 72 U/L (45-117) 11/23/19 08:30 Total Protein 7.4 g/dl (6.4-8.2) 11/23/19 08:30 Albumin 3.6 g/dl (3.4-5.0) 11/23/19 08:30 Syphilis Serology Reactive (NONREACTIVE) A* 11/23/19 08:30 RPR Titer Reactive 1:1 (NONREACTIVE) H D 11/23/19 08:30 COVID-19 (LENNIE) Not detected (Not Detected) 11/22/19 00:06 patient has history of syphilis adequately treated with 3 injections before in the past Assessment: 11/24/19 11:48 withdrawal symptom Plan: continue detox librium regimen,fluid
[2019-11-24] MEDS: THIAMINE HCL 100 MG TABLET (FP) PO SCH (23:29)
[2019-11-25] MEDS ORDERED: LORazepam 0.5 MG TABLET PO PRN
[2019-11-25] MEDS ORDERED: LORazepam 0.5 MG TABLET PO SCH (05:00)
[2019-11-25] MEDS: chlordiazePOXIDE HCL 25 MG CAPSULE PO SCH ×2 (05:21→11:28)
[2019-11-25] MEDS: PRENATAL VITAMINS W/ FOLIC ACID TABLET (FP) PO SCH (11:27)
[2019-11-25] MEDS: BACITRACIN/POLYMYXIN B SULFATE 15 GM TUBE TP SCH (11:27)
[2019-11-25 11:50] VITALS: BP 126/74; PULSE 84; TEMP 96.8
--- NOTE | 2019-11-25 13:57 | PN ---
S CIWA - CIWA Score Nausea/Vomitin-No Nausea/No Vomiting Muscle Tremors: 1-None Visible, but [place] Anxiety: 1-Mildly Anxious Agitation: 1-Slight > Activity Paroxysmal Sweats: No Perspiration Orientation: 0-Oriented Tacttile Disturbances: 1-Very Mild Itch/Numbness Auditory Disturbances: 0-None Visual Disturbances: 0-None Headache: 1-Very Mild CIWA-Ar Total Score: 5 BHS Progress Note (SOAP) Subjective: alert,irritable,anxious,interrupted sleep Objective: 11/25/19 15:03 Laboratory Last Values WBC 5.9 K/mm3 (4.0-10.0) 11/23/19 08:30 RBC 4.15 M/mm3 (4.00-5.60) 11/23/19 08:30 Hgb 13.3 GM/dL (11.7-16.9) 11/23/19 08:30 Hct 40.1 % (35.4-49) 11/23/19 08:30 MCV 96.6 fl (80-96) H 11/23/19 08:30 MCH 31.9 pg (25.7-33.7) 11/23/19 08:30 MCHC 33.1 g/dl (32.0-35.9) 11/23/19 08:30 RDW 12.4 % (11.9-15.9) 11/23/19 08:30 Plt Count 334 K/MM3 (134-434) D 11/23/19 08:30 MPV 8.1 fl (7.5-11.1) 11/23/19 08:30 Sodium 140 mmol/L (136-145) 11/23/19 08:30 Potassium 3.9 mmol/L (3.5-5.1) 11/23/19 08:30 Chloride 106 mmol/L (98-107) 11/23/19 08:30 Carbon Dioxide 27 mmol/L (21-32) 11/23/19 08:30 Anion Gap 7 MMOL/L (8-16) L 11/23/19 08:30 BUN 13.2 mg/dL (7-18) 11/23/19 08:30 Creatinine 1.0 mg/dL (0.55-1.3) 11/23/19 08:30 Est GFR (CKD-EPI)AfAm 99.15 11/23/19 08:30 Est GFR (CKD-EPI)NonAf 85.55 11/23/19 08:30 Random Glucose 70 mg/dL (74-106) L 11/23/19 08:30 Calcium 8.9 mg/dL (8.5-10.1) 11/23/19 08:30 Total Bilirubin 0.4 mg/dL (0.2-1) 11/23/19 08:30 AST 16 U/L (15-37) 11/23/19 08:30 ALT 21 U/L (13-61) 11/23/19 08:30 Alkaline Phosphatase 72 U/L (45-117) 11/23/19 08:30 Total Protein 7.4 g/dl (6.4-8.2) 11/23/19 08:30 Albumin 3.6 g/dl (3.4-5.0) 11/23/19 08:30 Syphilis Serology Reactive (NONREACTIVE) A* 11/23/19 08:30 RPR Titer Reactive 1:1 (NONREACTIVE) H D 11/23/19 08:30 COVID-19 (LENNIE) Not detected (Not Detected) 11/22/19 00:06 history of syhilis treated before Assessment: 11/25/19 15:04 withdrawal symptom Plan: continue detox librium regimen,dr franco reevaluation for bipolar disorder,discharge in am
--- NOTE | 2019-11-25 15:07 | PN ---
JOHN Progress Note Note: patient will be follow up with rehab at [facility]
--- NOTE | 2019-11-25 16:39 | DS ---
[facility] Detox Discharge Summary Admission Date: 11/22/19 Discharge Date: 11/25/19 - History Present History: Alcohol Dependence, Cocaine Dependence Additional Comments: Areas of dehiscence and open excoriations LLE , RLE, right forearm , posterior thorax Pertinent Past History: Cocaine: 2 gm /day via inhalation Tobacco: 1 ppd - Physical Exam Results Vital Signs: Vital Signs Temperature 96.8 F L 11/25/19 09:35 Pulse Rate 84 11/25/19 09:35 Respiratory Rate 17 11/25/19 09:35 Blood Pressure 126/74 11/25/19 09:35 O2 Sat by Pulse Oximetry (%) 96 11/25/19 09:35 Pertinent Admission Physical Exam Findings: Admitted w/ alcohol withdrawal and tolerated detox. Lungs CTA Alert, oriented. Agitated. Gait steady Lungs CTA Abd: S/NT/BS+ Dressings on (L) leg and (R) arm - dry and intact. Laboratory Last Values WBC 5.9 K/mm3 (4.0-10.0) 11/23/19 08:30 RBC 4.15 M/mm3 (4.00-5.60) 11/23/19 08:30 Hgb 13.3 GM/dL (11.7-16.9) 11/23/19 08:30 Hct 40.1 % (35.4-49) 11/23/19 08:30 MCV 96.6 fl (80-96) H 11/23/19 08:30 MCH 31.9 pg (25.7-33.7) 11/23/19 08:30 MCHC 33.1 g/dl (32.0-35.9) 11/23/19 08:30 RDW 12.4 % (11.9-15.9) 11/23/19 08:30 Plt Count 334 K/MM3 (134-434) D 11/23/19 08:30 MPV 8.1 fl (7.5-11.1) 11/23/19 08:30 Sodium 140 mmol/L (136-145) 11/23/19 08:30 Potassium 3.9 mmol/L (3.5-5.1) 11/23/19 08:30 Chloride 106 mmol/L (98-107) 11/23/19 08:30 Carbon Dioxide 27 mmol/L (21-32) 11/23/19 08:30 Anion Gap 7 MMOL/L (8-16) L 11/23/19 08:30 BUN 13.2 mg/dL (7-18) 11/23/19 08:30 Creatinine 1.0 mg/dL (0.55-1.3) 11/23/19 08:30 Est GFR (CKD-EPI)AfAm 99.15 11/23/19 08:30 Est GFR (CKD-EPI)NonAf 85.55 11/23/19 08:30 Random Glucose 70 mg/dL (74-106) L 11/23/19 08:30 Calcium 8.9 mg/dL (8.5-10.1) 11/23/19 08:30 Total Bilirubin 0.4 mg/dL (0.2-1) 11/23/19 08:30 AST 16 U/L (15-37) 11/23/19 08:30 ALT 21 U/L (13-61) 11/23/19 08:30 Alkaline Phosphatase 72 U/L (45-117) 11/23/19 08:30 Total Protein 7.4 g/dl (6.4-8.2) 11/23/19 08:30 Albumin 3.6 g/dl (3.4-5.0) 11/23/19 08:30 Syphilis Serology Reactive (NONREACTIVE) A* 11/23/19 08:30 RPR Titer Reactive 1:1 (NONREACTIVE) H D 11/23/19 08:30 COVID-19 (LENNIE) Not detected (Not Detected) 11/22/19 00:06 Labs reviewed. - Treatment Hospital Course: Detox Protocol Followed, Detoxed Safely, Responded well, Discharged Condition Good (Alert and oriented. Gait steady.), Rehab Referral Accepted (Has a referral to [facility] re[facility] and encouraged to follw through.) - Medication Discharge Medications: Ambulatory Orders Olanzapine [Zyprexa -] 5 mg PO HS #30 tablet 01/20/17 Thiamine HCl [Vitamin B1 -] 100 mg PO HS 30 Days #30 tablet 11/25/19 - Diagnosis (1) Alcohol dependence with uncomplicated withdrawal Status: Acute (2) Cocaine dependence, uncomplicated Status: Chronic (3) Nicotine dependence Status: Chronic Qualifiers: Nicotine product type: cigarettes Substance use status: uncomplicated Qualified Code(s): F17.210 - Nicotine dependence, cigarettes, uncomplicated - AMA Did Patient Leave Against Medical Advice: No
--- NOTE | 2019-11-25 16:39 | PN ---
BHS Progress Note Note: Scheduled for discharge in a.m. Lungs CTA Alert, oriented. Agitated. Gait steady Lungs CTA Abd: S/NT/BS+ Dressings on (L) leg and (R) arm - dry and intact. Vital Signs - 24 hr 11/24/19 11/24/19 11/25/19 17:36 21:09 05:06 Temperature 98.4 F 96.8 F L 97.3 F L Pulse Rate 91 H 81 80 Respiratory 18 18 18 Rate Blood Pressure 124/88 100/64 133/75 O2 Sat by Pulse 97 96 Oximetry (%) 11/25/19 09:35 Temperature 96.8 F L Pulse Rate 84 Respiratory 17 Rate Blood Pressure 126/74 O2 Sat by Pulse 96 Oximetry (%) Adm dx: Alcohol withdrawal, Nicotine use disorder, cocaine use disorder, skin lesions Plan: Declined NRT Encouraged to f/u w/ HCP regarding skin lesions. Scheduled to go to [facility] for rehab in a.m. and encouraged compliance
[2019-11-26] MEDS ORDERED: chlordiazePOXIDE HCL 10 MG CAPSULE PO PRN
[2019-11-26] MEDS ORDERED: LORazepam 0.5 MG TABLET PO ONE (05:00)
[2019-11-26] MEDS ORDERED: chlordiazePOXIDE HCL 10 MG CAPSULE PO SCH (05:00)
[2019-11-27] MEDS ORDERED: chlordiazePOXIDE HCL 10 MG CAPSULE PO SCH (05:00)
[2019-11-28] MEDS ORDERED: chlordiazePOXIDE HCL 10 MG CAPSULE PO ONE (05:00)
== END 2019-11-25 16:32 | disposition home or self-care (01) | DRG 774 ==
LOC: YASAS 21:06 → Y6N 23:28
PROVIDERS: ADMIT Allergy & Immunology; ATTEND Allergy & Immunology
PROC: HZ2ZZZZ Detoxification Services for Substance Abuse Treatment (ICD-10-PCS; principal; 2019-11-22)
DX: F10.230 Alcohol dependence with withdrawal, uncomplicated (principal); F14.20 Cocaine dependence, uncomplicated; F12.20 Cannabis dependence, uncomplicated; F17.210 Nicotine dependence, cigarettes, uncomplicated; F19.282 Other psychoactive substance dependence with psychoactive substance-induced sleep disorder; F19.24 Other psychoactive substance dependence with psychoactive substance-induced mood disorder; L98.8 Other specified disorders of the skin and subcutaneous tissue; R76.8 Other specified abnormal immunological findings in serum; Z86.19 Personal history of other infectious and parasitic diseases; Z56.0 Unemployment, unspecified
CPT/HCPCS: 36415; 80053; 85027; 86593; 86780; U0003